=== PATIENT | female | born 1960 | race Hispanic/Latino ===

== ENCOUNTER 2020-06-29 01:14 | Emergency (ER) | payer OTHER, SELFPAY ==
[2020-06-29 01:18] VITALS: BP 160/96; PULSE 68; RESP 16; TEMP 36.4; O2SAT 100
[2020-06-29] MEDS: hydrALAZINE HCL 20 MG/ML VIAL 10 MG IM (01:54)
--- NOTE | 2020-06-29 02:00 | ED.HA ---
HPI - Headache General Chief Complaint: Headache Stated Complaint: headache Time Seen by Provider: 06/29/20 01:20 History of Present Illness HPI Narrative: She had a severe posterior headache throughout the day yesterday. It was throbbing and associated with nausea. She reports that she had a similar Headache years ago and at that time she had high blood pressure and was started on medication. She took ibuprofen pror to coming in and the headache and nausea have nearly resolved. She is now concerned because her BP was elevated during triage. No weakness, numbness, dizziness. Related Data Allergies Allergy/AdvReac Type Severity Reaction Status Date / Time No Known Allergies Allergy Unverified 06/29/20 02:40 Review of Systems Review of Systems: All systems reviewed & are unremarkable except as noted in HPI and below Constitutional: Constitutional: Denies fever(s) and Denies weakness Eyes: Eyes: Denies change in vision ENT: Denies sore throat Cardiovascular: Cardiovascular: Denies chest pain Respiratory: Respiratory: Denies dyspnea Gastrointestinal: Gastrointestinal: Denies abdominal pain, Reports nausea and Denies vomiting Genitourinary: Genitourinary: Denies dysuria Neurologic: Denies dizziness, Reports headache(s), Denies numbness and Denies weakness [facility] Past Medical History Medical History (Updated 06/29/20 @ 02:35 by Obdulio Recio MD) Diabetes mellitus Social History Social History (Updated 06/29/20 @ 02:09 by Obdulio Recio MD) Living arrangements: with family Exam Const: General: no acute distress and alert Orientation/consciousness: patient oriented x3 HENMT: Head: normal to inspection Eyes: Pupils: Equal, round and reactive pupils present Resp: Effort & Inspection: normal respiratory effort Auscultation: clear to auscultation bilaterally Cardio: Rate: regular rate Rhythm: regular rhythm GI: Inspection: non-distended GI Palp: Yes Soft to palpation and No Tenderness to palpation present (GI) Skin: General skin exam: normal color Neuro: General: patient oriented x3, moves all extremities and CN's II-XI intact bilaterally Speech: normal speech Extrem: General: normal to inspection Course Vital Signs Vital signs: Vital Signs Temperature 36.4 C L 06/29/20 01:18 Pulse Rate 68 06/29/20 01:18 Respiratory Rate 16 06/29/20 01:18 Blood Pressure 160/96 H 06/29/20 01:18 Pulse Oximetry 100 06/29/20 01:18 Temperature 36.4 C L 06/29/20 01:18 Pulse Rate 88 06/29/20 02:37 Respiratory Rate 15 06/29/20 02:37 Blood Pressure 153/60 H 06/29/20 02:37 Pulse Oximetry 97 06/29/20 02:37 Discharge Plan Discharge Clinical Impression: Headache Qualifiers: Headache type: unspecified Headache chronicity pattern: acute headache Intractability: not intractable Qualified Code(s): R51.9 - Headache, unspecified Hypertension Qualifiers: Hypertension type: unspecified Qualified Code(s): I10 - Essential (primary) hypertension Patient Disposition: Home, Self-Care Condition: Stable Instructions: Acute Headache (ED), Hypertension (ED) Additional Instructions: Follow-up with your primary care physician for a blood pressure recheck. Prescriptions: New amlodipine 5 mg tablet 5 mg PO DAILY Qty: 30 RF: 0 Follow-up/Referrals: UNKNOWN,DOCTOR [Primary Care Provider] -
[2020-06-29 02:37] VITALS: BP 153/60; PULSE 88; RESP 15; O2SAT 97
[2020-06-29] MEDS: amLODIPine BESYLATE 5 MG TABLET PO (02:37)
== END 2020-06-29 02:40 | disposition home or self-care (01) ==
PROVIDERS: Emergency Provider Emergency Medicine
DX: R51.9 Headache, unspecified (principal); I10 Essential (primary) hypertension; E11.9 Type 2 diabetes mellitus without complications
CPT/HCPCS: 96372; 99283; A9270; J0360

== ENCOUNTER 2020-07-05 20:47 | Emergency (ER) | payer OTHER, SELFPAY ==
--- NOTE | ~2020-07-05 | CT_ITS ---
EXAMINATION: CT brain wo con DATE: 07/05/2020 23:59 INDICATION: Headache TECHNIQUE: Computed tomography (CT) of the head was performed without intravenous contrast. The mA wa s adjusted according to patient size. Iterative reconstruction technique was employed. Exam dose: 60 5.33 mGy-cm total exam DLP. COMPARISON: None FINDINGS: No intracranial mass lesion or hemorrhage or cerebrovascular accident is evident. No midlin e shift or mass effect. Normal ventricular size. Bilateral carotid siphon internal carotid artery calcifications are noted. No subdural or epidural hematoma. No fracture or bone destruction of the cranial vault. There is extensive opacification of posterior left ethmoid air cells and complete opacification of th e left sphenoid sinus. Minimal soft tissue thickening of the left maxillary sinus. The included paranasal sinuses and mastoid air cells are otherwise unremarkable. IMPRESSION: Extensive opacification of posterior left ethmoid air cells and complete opacification o f left sphenoid sinus, minimal soft tissue thickening of left maxillary sinus Cerebral atherosclerosis No significant intracranial abnormality Reviewed, dictated and finalized at [facility]. Reviewed, dictated and finalized at [facility]. IMPRESSION: Extensive opacification of posterior left ethmoid air cells and co mplete opacification of left sphenoid sinus, minimal soft tissue thickening of left maxillary sinus Cerebral atherosclerosis No significant intracranial abnormality
[2020-07-05 21:05] VITALS: BP 146/74; PULSE 90; RESP 18; TEMP 36.2; O2SAT 100
--- NOTE | 2020-07-05 23:27 | ED.GENADULT ---
HPI - General Adult General Chief complaint: Headache Stated complaint: Headache,nausea, weakness Time Seen by Provider: 07/05/20 23:00 Source: patient and family (son is interpreting for patient) Mode of arrival: ambulatory Limitations: no limitations History of Present Illness HPI narrative: Patient was seen here last week with similar complaint of headache. Treatment at that time reduce the severity of her headache but did not resolve, and today he became quite painful she could hear rushing in her right ear. She says the pain radiates around to the back of her head and she has some numbness to the base of her skull. She is also complaining of chest pain that radiates to her left shoulder, that pain coincides with her pain in her head. She was treated for hypertension when she was here last, and her blood pressure today is normal. Onset (ago): hour(s) Location: head and chest Severity: severe Quality: aching Relieving factors: none Exacerbating factors: none Treatments prior to arrival: NSAID Related Data Home Medications Medication Instructions Recorded Confirmed metformin mg 07/05/20 07/05/20 gabapentin 07/06/20 Allergies Allergy/AdvReac Type Severity Reaction Status Date / Time No Known Allergies Allergy Verified 07/05/20 21:08 Review of Systems Review of Systems: All systems reviewed & are unremarkable except as noted in HPI and below PMFSH Past Medical History Medical History (Updated 07/06/20 @ 01:37 by Olesya Woodruff PA-C) Cervical disc disease Diabetes mellitus Social History Social History Gender identity (if verbalized by the patient): Female Exam Const: General: healthy appearing, no acute distress and alert HENMT: Head: normal to inspection Ears: TM's normal bilaterally Face and sinus: normal facial exam Mouth: Yes Normal oral and palatal mucosa present Eyes: Conjunctivae: conjunctivae normal Pupils: Equal, round and reactive pupils present Resp: Effort & Inspection: normal respiratory effort Auscultation: clear to auscultation bilaterally Cardio: Rate: tachycardic Rhythm: regular rhythm Back/Spine/Pelvis: Cervical Spine: cervical ROM normal Skin: General skin exam: normal color Neuro: General: moves all extremities Extrem: General: normal to inspection Psych: Mental Status: mental status grossly normal Course Course Emergency Course: Pts glucose is >300. She states she does take her Metformin at home, but she doesn't check her blood sugar. EKG shows NSR Repeat blood glucose is 218 and patients headache and chest pain has resolved. Pt has appointment with PMD at 0900. Vital Signs Vital signs: Vital Signs Temperature 36.2 C L 07/05/20 21:05 Pulse Rate 90 07/05/20 21:05 Respiratory Rate 18 07/05/20 21:05 Blood Pressure 146/74 H 07/05/20 21:05 Pulse Oximetry 100 07/05/20 21:05 Temperature 36.2 C L 07/05/20 21:05 Pulse Rate 89 07/06/20 00:50 Respiratory Rate 15 07/06/20 00:50 Blood Pressure 168/72 H 07/06/20 00:50 Pulse Oximetry 100 07/06/20 00:50 Medical Decision Making Vital Signs Vital Signs: Vital Signs Temperature 36.2 C L 07/05/20 21:05 Pulse Rate 90 07/05/20 21:05 Respiratory Rate 18 07/05/20 21:05 Blood Pressure 146/74 H 07/05/20 21:05 Pulse Oximetry 100 07/05/20 21:05 Temperature 36.2 C L 07/05/20 21:05 Pulse Rate 89 07/06/20 00:50 Respiratory Rate 15 07/06/20 00:50 Blood Pressure 168/72 H 07/06/20 00:50 Pulse Oximetry 100 07/06/20 00:50 Lab Data Lab results reviewed: Yes I reviewed the patient's lab results. Result diagrams: 07/06/20 00:13 07/06/20 00:13 Labs: Lab Results 07/06/20 07/06/20 07/06/20 Range/Units 00:13 00:13 00:13 WBC 8.0 (4.5-10.0) K/mm3 RBC 4.31 (4.2-5.4) M/mm3 Hgb 12.0 (12.0-15.0) g/dL Hct 36.7 L (37.0-47.0) % MCV 85.2 (80-100) fl [facility]
[2020-07-06] MEDS: KETOROLAC 30 MG/ML VIAL (*BKC) IV PUSH (00:10)
[2020-07-06 00:18] VITALS: BP 174/82; PULSE 88; RESP 15; O2SAT 100
[2020-07-06 00:20] LABS: Basophils Absolute Auto 0.1 K/mm3 (0.0-0.1); Basophils Percent Auto 0.9 % (0.2-1.2); Eosinophils Absolute Auto 0.3 K/mm3 (0-0.3); Eosinophils Percent Auto 4.2 % (0-4.4); Hematocrit 36.7 % (37.0-47.0); Immature Granulocyte Absolute 0.02 K/mm3 (0.00-0.031); Immature Granulocyte Percent A 0.2 % (0-0.5); Lymphocytes Absolute Auto 2.21 K/mm3 (0.9-3.2); Lymphocytes Percent Auto 27.6 % (18.3-44.2); Mean Corpuscular HGB Conc 32.7 g/dl (32-36); Mean Corpuscular Hemoglobin 27.8 pg (26-34); Mean Corpuscular Volume 85.2 fl (80-100); Mean Platelet Volume 10.2 fl (7.4-10.4); Monocytes Absolute Auto 0.5 K/mm3 (0.1-0.6); Monocytes Percent Auto 6.6 % (2.6-8.5); Neutrophils Absolute Auto 4.8 K/mm3 (1.3-6.7); Neutrophils Percent Auto 60.5 % (45.5-73.1); Platelet Count Result 340 k/mm3 (150-375); Red Blood Count 4.31 M/mm3 (4.2-5.4); Red Cell Distribution Width 12.7 % (11.5-14.5)
[2020-07-06 00:36] LABS: Alanine Aminotransferase 19 U/L (4-35); Albumin Level 4.6 g/dL (3.5-5.1); Alkaline Phosphatase 97 U/L (38-126); Anion Gap 10 mmol/L (8-16); Aspartate Amino Transferase 33 U/L (14-36); Bilirubin,Total 0.2 mg/dL (0.2-1.3); Blood Urea Nitrogen 18 mg/dL (7-17); Calcium 10.1 mg/dL (8.4-10.2); Carbon Dioxide 31 mmol/L (22-30); Chloride 98 mmol/L (98-107); Estimated CRCL calculation 54 ml/min; Estimated Glomerular Filt Rate > 60; Glucose 320 mg/dL (65-105); Potassium 4.1 mmol/L (3.4-5.0); Sodium 139 mmol/L (137-145)
[2020-07-06 00:48] LABS: Troponin I < 0.012 ng/mL (0.000-0.034)
[2020-07-06] MEDS: SODIUM CHLORIDE 0.9% IV 1,000 ML 999 ML IV CONT (00:48)
[2020-07-06 00:50] VITALS: BP 168/72; PULSE 89; RESP 15; O2SAT 100
--- NOTE | 2020-07-06 01:12 | ECG_ITS ---
Measurements Intervals [place] Rate: 93 P: 74 IA: 147 QRS: 68 QRSD: 87 T: 57 QT: 341 QTc: 424 Interpretive Statements SINUS RHYTHM BASELINE ARTIFACT- II, III, AVL, AVF, V4-V6 BORDERLINE ECG Electronically Signed On 07-06-2020 7:02:39 CDT by Eduardo Hernandez D.O.
[2020-07-06 01:54] LABS: Glucose Point of Care 218 (65-105)
== END 2020-07-06 02:23 | disposition home or self-care (01) ==
PROVIDERS: Physician Assistant; Emergency Provider Emergency Medicine
DX: E11.65 Type 2 diabetes mellitus with hyperglycemia (principal); R51.9 Headache, unspecified; J01.30 Acute sphenoidal sinusitis, unspecified; Z79.84 Long term (current) use of oral hypoglycemic drugs; M50.90 Cervical disc disorder, unspecified, unspecified cervical region
CPT/HCPCS: 36415; 70450; 80053; 84484; 85025; 93005; 96361; 96374; 99284; J1885; J7030

== ENCOUNTER 2020-12-02 11:55 | Emergency (ER) | payer OTHER, SELFPAY ==
[2020-12-02] VITALS (8 sets, daily range): BP systolic 134–176; BP diastolic 44–79; PULSE 88–111; RESP 13–19; TEMP 36.6–36.8; O2SAT 98–99
--- NOTE | ~2020-12-02 | CT_ITS ---
EXAMINATION: CT abdomen pelvis w con INDICATION: Nausea TECHNIQUE: Computed tomographic images of the abdomen and pelvis were obtained after the administrati on of 100 cc of Omnipaque 350 intravenous contrast. The dose-length product (DLP) was 312.06 mGy-cm. Automated exposure control and iterative reconstruction technique were employed. COMPARISON: None available FINDINGS: Minimal dependent atelectasis is present in the lung bases. The heart size is normal. The s pleen, pancreas, gallbladder, and adrenal glands are normal. The kidneys are unremarkable. No patholo gically enlarged abdominal or pelvic lymph nodes are identified. There is no free intraperitoneal gas or evidence of bowel obstruction. There is mild thickening of the bladder wall. IMPRESSION: 1. Mild bladder wall thickening which could reflect cystitis. Reviewed, dictated and finalized at [facility].
[2020-12-02] MEDS: SODIUM CHLORIDE 0.9% IV 1,000 ML 999 ML IV CONT (12:55)
[2020-12-02] MEDS: ONDANSETRON INJ 4 MG/2 ML VIAL IV PUSH (12:55)
[2020-12-02 13:06] LABS: Basophils Percent Auto 0.3 % (0.2-1.2); Eosinophils Percent Auto 0.6 % (0-4.4); Hematocrit 36.4 % (37.0-47.0); Hemoglobin 12.4 g/dL (12.0-15.0); Immature Granulocyte Absolute 0.01 K/mm3 (0.00-0.031); Immature Granulocyte Percent A 0.3 % (0-0.5); Lymphocytes Absolute Auto 0.91 K/mm3 (0.9-3.2); Lymphocytes Percent Auto 26.9 % (18.3-44.2); Mean Corpuscular HGB Conc 34.1 g/dl (32-36); Mean Corpuscular Hemoglobin 27.9 pg (26-34); Mean Platelet Volume 10.1 fl (7.4-10.4); Monocytes Absolute Auto 0.2 K/mm3 (0.1-0.6); Monocytes Percent Auto 7.1 % (2.6-8.5); Neutrophils Absolute Auto 2.2 K/mm3 (1.3-6.7); Neutrophils Percent Auto 64.8 % (45.5-73.1); Platelet Count Result 161 k/mm3 (150-375); Red Blood Count 4.44 M/mm3 (4.2-5.4); White Blood Count 3.4 K/mm3 (4.5-10.0)
[2020-12-02 13:12] LABS: Add Urine Microscopic? YES; Appearance Urine Cloudy (Clear); Bacteria Urine Trace /hpf; Bilirubin Urine Negative (Negative); Blood Urine Negative (Negative); Color Urine Yellow (Yellow); Glucose Urine UA Negative (Negative); Ketones Urine 2+ mg/dL (Negative); Leukocyte Esterase Ur Negative LEU/UL (Negative); Mucus Urine Rare /lpf; Nitrate Urine Negative (Negative); Protein Urine 3+ mg/dL (Negative); RBC Urine 0-2 /hpf (0-2); Specific Grav Ur 1.015 (1.001-1.035); Squamous Epithelial Cell Urine Many /hpf (Few); Urobilinogen Urine Negative mg/dL (<2.0)
--- NOTE | 2020-12-02 13:13 | ED.GENADULT ---
HPI - General Adult General Chief complaint: Nausea/Vomiting/Diarrhea Stated complaint: nausea, burning, decreased appetite. Time Seen by Provider: 12/02/20 12:31 Source: patient, family and RN notes reviewed Mode of arrival: ambulatory Limitations: language barrier History of Present Illness HPI narrative: Patient is 60 years old female does not speak Irish came to the emergency room because of nausea and feeling empty in the stomach for the last 4 days. Intermittent, worse with eating. Patient denies any fever, chills, vomiting, diarrhea, constipation, radiation of pain, chest pain, shortness of breath, headache, urinary symptoms. History of hypertension and diabetes. Patient does not smoke or drink or uses drugs. History of section. The above history was obtained through a flight line service attendant on iPad Related Data Home Medications Medication Instructions Recorded Confirmed metformin mg 07/05/20 07/05/20 gabapentin 07/06/20 glimepiride mg 12/02/20 hydrochlorothiazide 12/02/20 lisinopril 12/02/20 pravastatin 12/02/20 Allergies Allergy/AdvReac Type Severity Reaction Status Date / Time No Known Allergies Allergy Verified 12/02/20 12:28 Review of Systems Review of Systems: Narrative: CONSTITUTIONAL: Denies fever, chills, or sweats. EYES: Denies visual changes, redness, or discharge. ENT: Denies rhinorrhea, congestion, sore throat, or otalgia. CARDIOVASCULAR: Denies chest pain, palpitations, or edema. RESPIRATORY: Denies cough or dyspnea. GASTROINTESTINAL: Denies abdominal pain, nausea, vomiting, or diarrhea. GENITOURINARY: Denies dysuria or hematuria. SKIN: Denies rash or itching. MUSCULOSKELETAL: Denies back pain, joint pain, or myalgia. NEUROLOGIC: Denies headache, numbness, or weakness. PSYCHIATRIC: Denies anxiety or depression. PMFSH Past Medical History Medical History Cervical disc disease Diabetes mellitus Social History Social History Gender identity (if verbalized by the patient): Female Exam Narrative: Exam Narrative: General appearance: Well-developed, well-nourished Skin: Normal color Head: Normocephalic, nontraumatic Eyes: Clear conjunctiva ENT: Oropharynx normal, ears normal, nose normal Neck: Supple, nontender Chest and respiratory: Airway patent, no respiratory distress, no accessory muscle use Heart: Regular rate/rhythm Abdomen: Soft, nontender, no organomegaly, quiet bowel sounds Vascular: Normal peripheral pulses, normal capillary refill. Musculoskeletal: Normal range of motion, nontender back Neurologic: Alert and oriented ?3, FUELER is normal as tested, no gross motor deficit Course Course Emergency Course: Stable Vital Signs Vital signs: Vital Signs Temperature 36.8 C 12/02/20 12:20 Pulse Rate 93 12/02/20 12:20 Respiratory Rate 19 12/02/20 12:20 Blood Pressure 176/75 H 12/02/20 12:20 Pulse Oximetry 98 12/02/20 12:20 Temperature 36.6 C 12/02/20 12:52 Pulse Rate 97 12/02/20 12:52 Respiratory Rate 18 12/02/20 12:52 Blood Pressure 146/60 H 12/02/20 12:52 Pulse Oximetry 99 12/02/20 12:52 Medical Decision Making MDM Narrative Medical decision making narrative: Nausea and epigastric discomfort. Labs, UA, CT abdomen pelvis with IV contrast, IV fluid, IV Zofran ordered. Further plan to follow please look at my differential diagnosis below Differential Diagnosis Differential Diagnosis: Pancreatitis, gastroparesis, gastritis, electrolyte imbalance, malignancy Vital Signs Vital Signs: Vital Signs Temperature 36.8 C 12/02/20 12:20 Pulse Rate
[2020-12-02 13:17] LABS: Alanine Aminotransferase 15 U/L (4-35); Albumin Level 4.3 g/dL (3.5-5.1); Alkaline Phosphatase 76 U/L (38-126); Anion Gap 10 mmol/L (8-16); Aspartate Amino Transferase 37 U/L (14-36); Bilirubin,Total 0.4 mg/dL (0.2-1.3); Blood Urea Nitrogen 9 mg/dL (7-17); Carbon Dioxide 28 mmol/L (22-30); Chloride 98 mmol/L (98-107); Estimated CRCL calculation 63 ml/min; Estimated Glomerular Filt Rate > 60; Glucose 166 mg/dL (65-105); Lipase 150 U/L (23-300); Potassium 3.7 mmol/L (3.4-5.0); Sodium 136 mmol/L (137-145)
== END 2020-12-02 14:50 | disposition home or self-care (01) ==
PROVIDERS: Emergency Provider Emergency Medicine
DX: R10.13 Epigastric pain (principal); E11.9 Type 2 diabetes mellitus without complications; Z79.84 Long term (current) use of oral hypoglycemic drugs; R93.41 Abnormal radiologic findings on diagnostic imaging of renal pelvis, ureter, or bladder
CPT/HCPCS: 36415; 74177; 80053; 81001; 81025; 83690; 85025; 96361; 96374; 99284; J2405; J7030; Q9967

== ENCOUNTER 2020-12-03 13:20 | Emergency (ER) | payer OTHER, SELFPAY | END 2020-12-03 13:30 | disposition left against medical advice (07) | PROVIDERS: Emergency Provider Internal Medicine Hematology & Oncology | DX: Z53.21 Procedure and treatment not carried out due to patient leaving prior to being seen by health care provider (principal) | CPT/HCPCS: 99199 ==

== ENCOUNTER 2023-10-01 12:11 | Emergency (ER) | payer OTHER, SELFPAY ==
[2023-10-01 12:17] VITALS: BP 142/65; PULSE 84; RESP 20; TEMP 36.4; O2SAT 100
[2023-10-01 12:46] LABS: Basophils Percent Auto 0.4 % (0.2-1.2); Eosinophils Absolute Auto 0.1 K/mm3 (0-0.3); Eosinophils Percent Auto 0.8 % (0-4.4); Hematocrit 39.9 % (37.0-47.0); Hemoglobin 12.6 g/dL (12.0-15.0); Immature Granulocyte Absolute 0.01 K/mm3 (0.00-0.031); Immature Granulocyte Percent A 0.1 % (0-0.5); Lymphocytes Absolute Auto 2.44 K/mm3 (0.9-3.2); Lymphocytes Percent Auto 33.2 % (18.3-44.2); Mean Corpuscular HGB Conc 31.6 g/dl (32-36); Mean Corpuscular Hemoglobin 26.7 pg (26-34); Mean Corpuscular Volume 84.5 fl (80-100); Mean Platelet Volume 9.7 fl (7.4-10.4); Monocytes Absolute Auto 0.4 K/mm3 (0.1-0.6); Monocytes Percent Auto 5.3 % (2.6-8.5); Neutrophils Absolute Auto 4.4 K/mm3 (1.3-6.7); Neutrophils Percent Auto 60.2 % (45.5-73.1); Platelet Count Result 309 k/mm3 (150-375); Red Blood Count 4.72 M/mm3 (4.2-5.4); Red Cell Distribution Width 12.2 % (11.5-14.5); White Blood Count 7.4 K/mm3 (4.5-10.0)
[2023-10-01 13:01] LABS: Appearance Urine Cloudy (Clear); Bacteria Urine 4+ /hpf; Bilirubin Urine Negative (Negative); Color Urine Yellow (Yellow); Glucose Urine UA 3+ mg/dL (Negative); Ketones Urine Trace mg/dL (Negative); Leukocyte Esterase Ur Trace LEU/UL (Negative); Nitrate Urine Positive (Negative); Non Pathogenic Casts 0-2; Protein Urine 2+ mg/dL (Negative); RBC Urine 0-2 /hpf (0-2); Squamous Epithelial Cell Urine Moderate /hpf (Few); Urobilinogen Urine 0.2 mg/dL (<2.0); WBC Urine >100 /hpf
[2023-10-01 13:02] LABS: Specific Grav Ur 1.041 (1.001-1.035)
[2023-10-01 13:05] LABS: Alanine Aminotransferase 20 U/L (6-35); Albumin Level 4.5 g/dL (3.5-5.1); Alkaline Phosphatase 119 U/L (38-126); Anion Gap 13 mmol/L (8-16); Aspartate Amino Transferase 40 U/L (14-36); Bilirubin,Total 0.5 mg/dL (0.2-1.3); Blood Urea Nitrogen 21 mg/dL (7-17); Calcium 9.5 mg/dL (8.4-10.2); Carbon Dioxide 26 mmol/L (22-30); Chloride 98 mmol/L (98-107); Estimated CRCL calculation 65 ml/min; Estimated Glomerular Filt Rate > 60; Glucose 361 mg/dL (65-110); Lipase 210 U/L (23-300); Potassium 4.3 mmol/L (3.4-5.0); Sodium 137 mmol/L (137-145)
[2023-10-01 13:14] LABS: Add Urine Microscopic? YES
[2023-10-01 13:14] LABS: Influenza A QL RT-PCR Positive (Negative); Influenza B QL RT-PCR Negative (Negative); RSV RNA, RT-PCR Negative (Negative); SARS-CoV-2 RNA PCR Negative (Negative)
--- NOTE | 2023-10-01 13:15 | ED.NAVMDI ---
HPI - Nausea/Vomiting/Diarrhea General Chief complaint: Nausea/Vomiting/Diarrhea Stated complaint: nausea Time Seen by Provider: 10/01/23 12:30 Source: patient Mode of arrival: ambulatory Limitations: language barrier (patient's daughter is interpreting which she prefers, I offered str[employer] imagery intelligence and she declined) History of Present Illness HPI Narrative: This is a 63 year old female that presents to the emergency department for symptoms present over the last couple of days. Reports fever, fatigue, nausea, vomiting, myalgias, congestion, cough and headache. Denies dysuria or diarrhea. Related Data Home Medications Medication Instructions Recorded Confirmed metformin 1,000 mg tablet mg 07/05/20 07/05/20 gabapentin 400 mg capsule 07/06/20 glimepiride 4 mg tablet mg 12/02/20 hydrochlorothiazide 12.5 mg tablet 12/02/20 lisinopril 10 mg tablet 12/02/20 pravastatin 20 mg tablet 12/02/20 Allergies Allergy/AdvReac Type Severity Reaction Status Date / Time No Known Allergies Allergy Verified 10/01/23 12:30 Review of Systems Review of Systems: CONSTITUTIONAL: Reports fever ENT: Reports congestion RESPIRATORY: Reports cough. Denies dyspnea. GASTROINTESTINAL: Reports abdominal pain, nausea, vomiting. Denies diarrhea. GENITOURINARY: Denies dysuria All systems reviewed & are unremarkable except as noted in HPI and below PMFSH Past Medical History Medical History (Updated 10/01/23 @ 13:22 by Liyah Patel PA-C) Cervical disc disease Diabetes mellitus History of hypertension Social History Social History (Updated 10/01/23 @ 13:20 by Liyah Patel PA-C) Substance use: never Living arrangements: with family Gender identity (if verbalized by the patient): Female Exam Narrative: GENERAL: Well-appearing, well-nourished, and in no acute distress. HEAD: Normocephalic, atraumatic. EYES: EOMI. ENT: Nares clear, no rhinorrhea or epistaxis. Mucous membranes dry. Oropharynx without tonsillar hypertrophy exudate or other lesions. Bilateral TMs pearly farias non-bulging NECK: Supple. No adenopathy or masses. CHEST: Clear to auscultation. No respiratory distress. No wheezes rales or rhonchi HEART: Regular rate and rhythm. No murmur heard. Normal peripheral pulses. ABDOMEN: Soft, nontender, nondistended, normal active bowel sounds. EXTREMITIES: Normal range of motion. No edema. SKIN: Warm, dry, no rash. NEURO: No focal deficits. Alert and oriented x3. PSYCH: Normal mood and affect Course Course Emergency Course: patient and family updated on workup and agree with plan of care Vital Signs Vital signs: Vital Signs Temperature 97.6 F 10/01/23 12:17 Pulse Rate 84 10/01/23 12:17 Respiratory Rate 20 10/01/23 12:17 Blood Pressure 142/65 H 10/01/23 12:17 Pulse Oximetry 100 10/01/23 12:17 Temperature 97.6 F 10/01/23 12:17 Pulse Rate 84 10/01/23 12:17 Respiratory Rate 20 10/01/23 12:17 Blood Pressure 142/65 H 10/01/23 12:17 Pulse Oximetry 100 10/01/23 12:17 MDM - Nausea/Vomiting/Diarrhea MDM Narrative Medical decision making narrative: This is a 63-year-old female that presents to the emergency department for symptoms ongoing over the last couple of days. Reporting nausea, vomiting, congestion, headache aches, and myalgias. She is afebrile in the ED and nontoxic appearing. Her vitals are stable. Abdomen is nontender. Lungs are clear on exam. CBC and metabolic panel without concerning findings. Lipase is normal. Urine without evidence of infection. This will be sent for culture. Patient given 1st dose of antibiotics IV in the ED. patient is influenza A positive. Will be treated with Tamiflu. She was hydrated and given antiemetic with relief. She was updated on her workup and agrees with plan of care. She is to follow up with her primary provider. She was given warnings to return to the ER Differential Diagnosis Differential diagnosis: Likely g
[2023-10-01] MEDS: SODIUM CHLORIDE 0.9% IV 500 ML 999 ML IV CONT (13:17)
[2023-10-01] MEDS: ONDANSETRON INJ 4 MG/2 ML VIAL IV PUSH (13:20)
== END 2023-10-01 15:32 | disposition home or self-care (01) ==
PROVIDERS: Emergency Medicine; Emergency Provider Physician Assistant
DX: J10.1 Influenza due to other identified influenza virus with other respiratory manifestations (principal); N39.0 Urinary tract infection, site not specified; Z20.822 Contact with and (suspected) exposure to COVID-19; E11.9 Type 2 diabetes mellitus without complications; I10 Essential (primary) hypertension; Z79.84 Long term (current) use of oral hypoglycemic drugs
CPT/HCPCS: 36415; 80053; 81001; 83690; 85025; 87086; 87186; 87637; 96365; 96375; 99284; J0696; J2405; J7040

== ENCOUNTER 2024-02-13 08:27 | Emergency (ER) | payer OTHER, SELFPAY ==
[2024-02-13 08:28] VITALS: BP 157/65; PULSE 82; RESP 16; TEMP 36.9; O2SAT 100
[2024-02-13 08:58] LABS: Basophils Absolute Auto 0.1 K/mm3 (0.0-0.1); Basophils Percent Auto 0.6 % (0.2-1.2); Eosinophils Absolute Auto 0.2 K/mm3 (0-0.3); Eosinophils Percent Auto 1.8 % (0-4.4); Hematocrit 36.5 % (37.0-47.0); Hemoglobin 12.1 g/dL (12.0-15.0); Immature Granulocyte Absolute 0.03 K/mm3 (0.00-0.031); Immature Granulocyte Percent A 0.3 % (0-0.5); Lymphocytes Percent Auto 25.5 % (18.3-44.2); Mean Corpuscular HGB Conc 33.2 g/dl (32-36); Mean Corpuscular Hemoglobin 27.8 pg (26-34); Mean Corpuscular Volume 83.9 fl (80-100); Mean Platelet Volume 9.6 fl (7.4-10.4); Monocytes Absolute Auto 0.5 K/mm3 (0.1-0.6); Monocytes Percent Auto 5.1 % (2.6-8.5); Neutrophils Percent Auto 66.7 % (45.5-73.1); Platelet Count Result 313 k/mm3 (150-375); Red Blood Count 4.35 M/mm3 (4.2-5.4)
[2024-02-13 09:02] LABS: Appearance Urine Clear (Clear); Bacteria Urine Rare /hpf; Bilirubin Urine Negative (Negative); Blood Urine Non-Hemolyzed Trace (Negative); Color Urine Yellow (Yellow); Glucose Urine UA 3+ mg/dL (Negative); Ketones Urine Trace mg/dL (Negative); Leukocyte Esterase Ur Negative LEU/UL (Negative); Nitrate Urine Negative (Negative); Non Pathogenic Casts 0-2; Protein Urine 2+ mg/dL (Negative); RBC Urine 0-2 /hpf (0-2); Squamous Epithelial Cell Urine Occasional /hpf (Few); Urobilinogen Urine 0.2 mg/dL (<2.0); pH Urine 6.5 (5.0-9.0)
[2024-02-13 09:05] LABS: Add Urine Microscopic? YES; Specific Grav Ur 1.033 (1.001-1.035)
[2024-02-13 09:13] LABS: Alanine Aminotransferase 13 U/L (6-35); Albumin Level 4.4 g/dL (3.5-5.1); Alkaline Phosphatase 120 U/L (38-126); Anion Gap 8 mmol/L (4-12); Aspartate Amino Transferase 21 U/L (14-36); Bilirubin,Total 0.5 mg/dL (0.2-1.3); Blood Urea Nitrogen 18 mg/dL (7-17); Calcium 9.3 mg/dL (8.4-10.2); Carbon Dioxide 27 mmol/L (22-30); Chloride 99 mmol/L (98-107); Estimated Glomerular Filt Rate > 60; Glucose 307 mg/dL (65-110); Lipase 154 U/L (23-300); Sodium 134 mmol/L (137-145)
[2024-02-13] MEDS: SODIUM CHLORIDE 0.9% IV 2,000 ML 999 ML IV CONT (10:11)
[2024-02-13] MEDS: ONDANSETRON INJ 4 MG/2 ML VIAL IV PUSH (10:12)
[2024-02-13] MEDS: FAMOTIDINE 20 MG/2 ML VIAL IV PUSH (10:12)
--- NOTE | 2024-02-13 10:12 | ED.GENADULT ---
HPI - General Adult General Chief complaint: Nausea/Vomiting/Diarrhea Stated complaint: N/V,ABD PAIN X2D Time Seen by Provider: 02/13/24 09:05 History of Present Illness HPI narrative: Medical Accounts Receivable Specialist service used for all communication. This is a 63-year-old Eritrean-speaking female presenting for epigastric abdominal discomfort and nausea. Patient states for last 2 days she has had empty feeling in the epigastric area. This is associated with nausea but no vomiting. It is nonradiating, mild in intensity. She has had this multiple times in past has been seen in our ER for before. Patient denies fevers chills chest pain difficulty breathing. Her last bowel movement yesterday and was normal. No other complaints. Patient denies dysuria/ urgency/frequency. Related Data Home Medications Medication Instructions Recorded Confirmed metformin 1,000 mg tablet mg 07/05/20 07/05/20 gabapentin 400 mg capsule 07/06/20 glimepiride 4 mg tablet mg 12/02/20 hydrochlorothiazide 12.5 mg tablet 12/02/20 lisinopril 10 mg tablet 12/02/20 pravastatin 20 mg tablet 12/02/20 Allergies Allergy/AdvReac Type Severity Reaction Status Date / Time No Known Allergies Allergy Verified 02/13/24 08:29 [facility] Past Medical History Medical History Cervical disc disease Diabetes mellitus History of hypertension Social History Social History (Updated 10/01/23 @ 13:20 by Liyah Patel PA-C) Substance use: never Living arrangements: with family Gender identity (if verbalized by the patient): Female Exam Narrative: APPEARANCE: No apparent distress. A&O x3, well appearing Head: atraumatic. EYES: EOMI, NOSE: Atraumatic NECK: Trachea midline RESPIRATORY: No increased rate of breathing, CTAB CARDIOVASCULAR: RRR, ABDOMINAL: soft nontender no guarding or rebound, no CVA tenderness MUSCULOSKELETAl: No obvious deformities NEURO: Alert. Moving 4/4 extremities SKIN:: Warm, dry. Normal color PSYCHIATRIC: Normal affect Course Vital Signs Vital signs: Vital Signs Temperature 98.5 F 02/13/24 08:28 Pulse Rate 82 02/13/24 08:28 Respiratory Rate 16 02/13/24 08:28 Blood Pressure 157/65 H 02/13/24 08:28 Pulse Oximetry 100 02/13/24 08:28 Oxygen Delivery Room Air 02/13/24 08:28 Temperature 98.5 F 02/13/24 08:28 Pulse Rate 82 02/13/24 08:28 Respiratory Rate 16 02/13/24 08:28 Blood Pressure 157/65 H 02/13/24 08:28 Pulse Oximetry 100 02/13/24 08:28 Oxygen Delivery Room Air 02/13/24 08:28 Medical Decision Making MDM Narrative Medical decision making narrative: -Course: 63-year-old female presenting for epigastric discomfort and nausea. This is a chronic complaint for the patient. Laboratory studies were reassuring. Her abdominal exam is benign. Her vital signs are stable patient was given symptomatic treatment and was able to tolerate p.o.. She will be discharged prescriptions for Zofran and Pepcid. Primary care follow-up return precautions. -DDX includes but is not limited to: Nausea vomiting, medication side effect gastroenteritis, gastritis gallbladder disease, -Co-morbidities complicating care: hypertension, diabetes -External Chart Review: review of ER visit with identical presentation 11/2020 -Hx from independent Sources: Daughter bedside -Independent interpretation of studies: labs reviewed. glucose elevated w/o dka/hhs urine had 6-10 white blood cells per high-power field but negative nitrites and leuk esterase. Patient has no urinary symptoms or hold off on treatment. This can be followed by PCP -Interventions: 2 L normal saline, Zofran Pepcid -Shared decision making / Disposition:discharged -RX Zofran/pepcid Vital Signs Vital Signs: Vital Signs Temperature 98.5 F 02/13/24 08:28 Pulse Rate 82 02/13/24 08:28 Respiratory Rate 16 02/13/24 08:28 Blood Pressure 157/65 H 02/13/24 08:28 Pulse Oximetry
[2024-02-13 11:26] VITALS: BP 174/67; PULSE 88; RESP 16; O2SAT 99
== END 2024-02-13 11:33 | disposition home or self-care (01) ==
PROVIDERS: Emergency Provider Emergency Medicine
DX: K29.70 Gastritis, unspecified, without bleeding (principal); R11.0 Nausea; E11.9 Type 2 diabetes mellitus without complications; Z79.84 Long term (current) use of oral hypoglycemic drugs; I10 Essential (primary) hypertension
CPT/HCPCS: 36415; 80053; 81001; 83690; 85025; 87086; 96361; 96374; 96375; 99284; J2405; J7030

== ENCOUNTER 2024-02-13 22:38 | Emergency (ER) | payer OTHER, SELFPAY ==
--- NOTE | ~2024-02-13 | CT_ITS ---
EXAMINATION: CT abdomen pelvis w con DATE: 02/13/2024 23:37 INDICATION: Nausea and vomiting. TECHNIQUE: Computed tomography (CT) of the abdomen and pelvis was performed with 100 cc Omnipaque 350 intravenous contrast. The dose-length product was 245.33 mGy-cm. Automated exposure control and iter ative reconstruction technique were employed. COMPARISON: CT dated 12/02/2020. FINDINGS: Heart size normal. No significant pleural or pericardial effusion. The liver, spleen, pancr eas, adrenal glands and kidneys are unremarkable. Gallbladder is present. Nonobstructive bowel gas pa ttern. No significant vascular abnormality. No lymphadenopathy. No free air or free fluid. No abnorma l pelvic masses or fluid collections. There is bladder wall thickening. Correlate clinically for poss ible cystitis. IMPRESSION: 1. Bladder wall thickening. Correlate clinically for possible cystitis. Reviewed, dictated and finalized at [facility].
[2024-02-13 22:48] VITALS: BP 186/64; PULSE 76; RESP 16; TEMP 36.7; O2SAT 100
[2024-02-13 22:49] VITALS: BP 186/64; PULSE 76; RESP 13; O2SAT 100
[2024-02-13 23:01] LABS: Basophils Absolute Auto 0.1 K/mm3 (0.0-0.1); Basophils Percent Auto 0.5 % (0.2-1.2); Eosinophils Absolute Auto 0.1 K/mm3 (0-0.3); Eosinophils Percent Auto 1.1 % (0-4.4); Hematocrit 36.3 % (37.0-47.0); Immature Granulocyte Absolute 0.05 K/mm3 (0.00-0.031); Immature Granulocyte Percent A 0.5 % (0-0.5); Lymphocytes Absolute Auto 1.94 K/mm3 (0.9-3.2); Lymphocytes Percent Auto 20.5 % (18.3-44.2); Mean Corpuscular HGB Conc 33.1 g/dl (32-36); Mean Corpuscular Hemoglobin 27.6 pg (26-34); Mean Corpuscular Volume 83.4 fl (80-100); Mean Platelet Volume 9.2 fl (7.4-10.4); Monocytes Absolute Auto 0.4 K/mm3 (0.1-0.6); Monocytes Percent Auto 4.6 % (2.6-8.5); Neutrophils Absolute Auto 6.9 K/mm3 (1.3-6.7); Neutrophils Percent Auto 72.8 % (45.5-73.1); Platelet Count Result 306 k/mm3 (150-375); Red Blood Count 4.35 M/mm3 (4.2-5.4); Red Cell Distribution Width 11.9 % (11.5-14.5); White Blood Count 9.5 K/mm3 (4.5-10.0)
[2024-02-13 23:10] LABS: Alanine Aminotransferase 14 U/L (6-35); Albumin Level 4.4 g/dL (3.5-5.1); Alkaline Phosphatase 116 U/L (38-126); Anion Gap 9 mmol/L (4-12); Aspartate Amino Transferase 24 U/L (14-36); Bilirubin,Total 0.5 mg/dL (0.2-1.3); Blood Urea Nitrogen 13 mg/dL (7-17); Calcium 8.9 mg/dL (8.4-10.2); Carbon Dioxide 25 mmol/L (22-30); Chloride 99 mmol/L (98-107); Estimated Glomerular Filt Rate > 60; Glucose 301 mg/dL (65-110); Lipase 111 U/L (23-300); Potassium 4.1 mmol/L (3.4-5.0); Sodium 133 mmol/L (137-145)
[2024-02-13] MEDS: METOCLOPRAMIDE HCL INJ 10 MG/2 ML VIAL IV PUSH (23:18)
[2024-02-13] MEDS: MECLIZINE HCL 25 MG TABLET PO (23:18)
[2024-02-13] MEDS: PANTOPRAZOLE SODIUM IV 40 MG VIAL IV PUSH (23:18)
[2024-02-13 23:36] VITALS: PULSE 81; RESP 13; O2SAT 100
[2024-02-14 00:15] VITALS: PULSE 81; RESP 15
[2024-02-14 00:30] VITALS: PULSE 69; RESP 14
[2024-02-14 00:48] VITALS: PULSE 72; RESP 14; O2SAT 100
--- NOTE | 2024-02-14 02:31 | ED.NAVMDI ---
HPI - Nausea/Vomiting/Diarrhea General Chief complaint: Nausea/Vomiting/Diarrhea Stated complaint: N/V; seen here this morning for same sx Time Seen by Provider: 02/13/24 22:52 History of Present Illness HPI Narrative: patient was seen earlier for nausea vomiting felt to be likely gastritis presents back here for the same symptoms, she states that she tried taking the medicines prescribed and was not able to keep anything down. She also states that when she tries to get up she will get slightly dizzy and then get nauseous. Describes a sensation of the room spinning around her but only when she is sitting up or standing up. Related Data Home Medications Medication Instructions Recorded Confirmed metformin 1,000 mg tablet mg 07/05/20 07/05/20 gabapentin 400 mg capsule 07/06/20 glimepiride 4 mg tablet mg 12/02/20 hydrochlorothiazide 12.5 mg tablet 12/02/20 lisinopril 10 mg tablet 12/02/20 pravastatin 20 mg tablet 12/02/20 Allergies Allergy/AdvReac Type Severity Reaction Status Date / Time No Known Allergies Allergy Verified 02/13/24 08:29 Review of Systems Review of Systems: All systems reviewed & are unremarkable except as noted in HPI and below PMFSH Past Medical History Medical History Cervical disc disease Diabetes mellitus History of hypertension Social History Social History (Updated 10/01/23 @ 13:20 by Liyah Patel PA-C) Substance use: never Living arrangements: with family Gender identity (if verbalized by the patient): Female Exam Narrative: EXAMINATION OF ORGAN SYSTEMS/BODY AREAS: Constitutional: Vital signs per nursing GENERAL: appears slightly uncomfortable in the bed HEAD: Normal with no signs of head trauma. EYES: EOMI, conjunctiva normal, PERRL ENT: Hearing grossly intact LUNGS: Nonlabored breathing. HEART: [Regular rate and rhythm] ABD: [Soft], very minimal tenderness to palpation epigastric abdomen EXT: Normal range of motion SKIN: [No rashes or lesions.] NEURO: [Alert and oriented x 3. No gross focal sensory or strength deficits.] finger-nose intact. No facial droop. Clear speech. PSYCH: Normal affect Course Vital Signs Vital signs: Vital Signs Temperature 98.0 F 02/13/24 22:48 Pulse Rate 76 02/13/24 22:48 Respiratory Rate 16 02/13/24 22:48 Blood Pressure 186/64 H 02/13/24 22:48 Pulse Oximetry 100 02/13/24 22:48 Oxygen Delivery Room Air 02/13/24 22:48 Temperature 98.0 F 02/13/24 22:48 Pulse Rate 72 02/14/24 00:48 Respiratory Rate 14 02/14/24 00:48 Blood Pressure 186/64 H 02/13/24 22:49 Pulse Oximetry 100 02/14/24 00:48 Oxygen Delivery Room Air 02/13/24 22:48 MDM - Nausea/Vomiting/Diarrhea MDM Narrative Medical decision making narrative: She patient presenting with epigastric pain with nausea vomiting, and some vertigo worse with movement. She does admit that she drinks soda and eats spicy food every day. I suspect most likely gastritis versus peptic ulcer disease but since she did come back I did obtain a CT abdomen / pelvis which is thankfully normal. I did also give her meclizine for the vertigo, I have very low concern for posterior CVA given that the symptoms are positional and not persistent, and have been ongoing for multiple days. she is treated here for vertigo with meclizine, and nausea and vomiting and possible gastritis with Protonix, Reglan, and on re-evaluation states that she is feeling much better, she is no longer nauseous, she is also no longer dizzy, she feels comfortable going home at this time with return precautions and I did have long discussion regarding dietary changes. Lab Data 02/13/24 22:54 02/13/24 22:54 Labs: Lab Results 02/13/24 Range/Units 22:54 WBC 9.5 (4.5-10.0) K/mm3 RBC 4.35 (4.2-5.4) M/mm3 Hgb 12.0 (12.0-15.0) g/dL Hct 36.3 L (37.0-47.0) % MCV 83.4
== END 2024-02-14 01:26 | disposition home or self-care (01) ==
PROVIDERS: Emergency Provider Emergency Medicine
DX: R11.2 Nausea with vomiting, unspecified (principal); R42 Dizziness and giddiness; E11.9 Type 2 diabetes mellitus without complications; Z79.84 Long term (current) use of oral hypoglycemic drugs; I10 Essential (primary) hypertension
CPT/HCPCS: 36415; 74177; 80053; 81001; 83690; 85025; 87086; 96361; 96374; 96375; 99284; A9270; C9113; J2405; J2765; J7030; Q9967

== ENCOUNTER 2024-05-14 09:54 | Emergency (ER) | payer OTHER, SELFPAY ==
[2024-05-14 10:07] VITALS: BP 188/75; PULSE 72; RESP 20; TEMP 36.6; O2SAT 99
--- NOTE | 2024-05-14 10:10 | PC.NURSE ---
BS 116
[2024-05-14 10:12] LABS: Glucose Point of Care 116 mg/dl (65-105)
--- NOTE | 2024-05-14 10:48 | ED.EXTPRO ---
HPI - Extremity Problem General Chief complaint: Extremity Problem,Nontraumatic Stated complaint: leg pain Time Seen by Provider: 05/14/24 10:30 Source: patient and family Mode of arrival: ambulatory Limitations: language barrier (Bermudian speaker) History of Present Illness HPI Narrative: Interpretive services Iggy #[id number] used Patient presents with complaint of bilateral leg pain, numbness and tingling. She notes that it occurs intermittently and started at the bottoms of her feet but now her up to her knees. Not currently experiencing symptoms. Her primary care physician is Dr. Arce in [place]. She denies any fevers or shortness of breath. She has a diagnosis of diabetes mellitus for which she takes 1000 mg of metformin b.i.d. no other concerns or questions. Related Data Home Medications Medication Instructions Recorded Confirmed metformin 1,000 mg tablet mg 07/05/20 07/05/20 gabapentin 400 mg capsule 07/06/20 glimepiride 4 mg tablet mg 12/02/20 hydrochlorothiazide 12.5 mg tablet 12/02/20 lisinopril 10 mg tablet 12/02/20 pravastatin 20 mg tablet 12/02/20 Allergies Allergy/AdvReac Type Severity Reaction Status Date / Time No Known Allergies Allergy Verified 05/14/24 10:10 [facility] Past Medical History Medical History Cervical disc disease Diabetes mellitus History of hypertension Social History Social History Social History: Bermudian speaking Substance use: never Living arrangements: with family Gender identity (if verbalized by the patient): Female Exam Narrative: GENERAL: Well-appearing, well-nourished, and in no acute distress. HEAD: Normocephalic, atraumatic. EYES: Non injected, non icteric ENT: Nares clear, no rhinorrhea or epistaxis. NECK: Supple. CHEST: Speaking in full sentences. No respiratory distress. HEART: Regular rate and rhythm. . ABDOMEN: Soft, nondistended. EXTREMITIES: Normal range of motion. No lower extremity edema. Demonstrates bilateral knee flexion extension as well as dorsiflexion and plantar flexion of bilateral lower extremities. SKIN: Warm, dry, no rash. Extremities are warm and well perfused. NEURO: No focal deficits. Alert and oriented x3. Sensation intact to gross touch throughout bilateral calves and feet. PSYCH: Normal mood and affect. Course Vital Signs Vital signs: Vital Signs Temperature 97.8 F 05/14/24 10:07 Pulse Rate 72 05/14/24 10:07 Respiratory Rate 20 05/14/24 10:07 Blood Pressure 188/75 H 05/14/24 10:07 Pulse Oximetry 99 05/14/24 10:07 Oxygen Delivery Room Air 05/14/24 10:07 Temperature 97.8 F 05/14/24 10:07 Pulse Rate 87 05/14/24 13:09 Respiratory Rate 16 05/14/24 13:09 Blood Pressure 146/77 H 05/14/24 13:09 Pulse Oximetry 97 05/14/24 13:09 Oxygen Delivery Room Air 05/14/24 10:07 MDM - Extremity (Nontraumatic) MDM Narrative Medical decision making narrative: Patient presents with concern for intermittent on bilateral lower extremity pain and numbness and tingling. She has a history of diabetes mellitus for which she is on metformin 1000 mg b.i.d.. In the emergency department she is afebrile with vital signs notable for hypertension. Patient's symptoms do sound classically like peripheral neuropathy and this is especially likely given her diabetes however will assess for other etiologies. Legs are grossly symmetric and without edema thus low suspicion for DVT or lymphedema / heart failure. She has a normocytic anemia; the hemoglobin was previously normal although it does not represent a large delta from previous. She does have a very mild hypomagnesemia; will provide supplementation. Work up otherwise unremarkable. Has a mild anemia but would not suspect this degree to create symptoms such as these. Discharged home in stable condition and advised to follow up with [facility]
[2024-05-14 11:52] LABS: Basophils Percent Auto 0.5 % (0.2-1.2); Eosinophils Absolute Auto 0.4 K/mm3 (0-0.3); Eosinophils Percent Auto 5.6 % (0-4.4); Hematocrit 34.1 % (37.0-47.0); Hemoglobin 11.1 g/dL (12.0-15.0); Immature Granulocyte Absolute 0.02 K/mm3 (0.00-0.031); Immature Granulocyte Percent A 0.3 % (0-0.5); Lymphocytes Absolute Auto 2.53 K/mm3 (0.9-3.2); Lymphocytes Percent Auto 33.6 % (18.3-44.2); Mean Corpuscular HGB Conc 32.6 g/dl (32-36); Mean Corpuscular Hemoglobin 27.5 pg (26-34); Mean Corpuscular Volume 84.6 fl (80-100); Mean Platelet Volume 9.6 fl (7.4-10.4); Monocytes Absolute Auto 0.5 K/mm3 (0.1-0.6); Monocytes Percent Auto 6.3 % (2.6-8.5); Neutrophils Percent Auto 53.7 % (45.5-73.1); Platelet Count Result 311 k/mm3 (150-375); Red Blood Count 4.03 M/mm3 (4.2-5.4); Red Cell Distribution Width 12.2 % (11.5-14.5); White Blood Count 7.5 K/mm3 (4.5-10.0)
[2024-05-14 12:05] LABS: Alanine Aminotransferase 14 U/L (6-35); Albumin Level 4.3 g/dL (3.5-5.1); Alkaline Phosphatase 87 U/L (38-126); Anion Gap 10 mmol/L (4-12); Aspartate Amino Transferase 21 U/L (14-36); Bilirubin,Total 0.3 mg/dL (0.2-1.3); Blood Urea Nitrogen 15 mg/dL (7-17); Calcium 8.9 mg/dL (8.4-10.2); Carbon Dioxide 27 mmol/L (22-30); Chloride 101 mmol/L (98-107); Creatine Kinase 51 U/L (30-135); Estimated CRCL calculation 58 ml/min; Estimated Glomerular Filt Rate > 60; Glucose 99 mg/dL (65-110); Magnesium 1.5 mg/dL (1.6-2.3); Potassium 4.1 mmol/L (3.4-5.0); Sodium 138 mmol/L (137-145)
[2024-05-14] MEDS: MAGNESIUM OXIDE 400 MG TABLET PO (12:50)
[2024-05-14 13:09] VITALS: BP 146/77; PULSE 87; RESP 16; O2SAT 97
== END 2024-05-14 13:13 | disposition home or self-care (01) ==
PROVIDERS: Emergency Provider Student in an Organized Health Care Education/Training Program; PCP Internal Medicine Gastroenterology
DX: E11.42 Type 2 diabetes mellitus with diabetic polyneuropathy (principal); D64.9 Anemia, unspecified; E83.42 Hypomagnesemia; I10 Essential (primary) hypertension; Z79.84 Long term (current) use of oral hypoglycemic drugs
CPT/HCPCS: 36415; 80053; 82550; 82948; 83735; 85025; 99283; A9270

== ENCOUNTER 2024-06-17 12:22 | Emergency (ER) | payer OTHER, SELFPAY ==
--- NOTE | ~2024-06-17 | CT_ITS ---
Non-contrast Head CT History: Weakness COMPARISON: 07/05/2020 Technique: Axial non-contrast imaging of the brain was performed. Dose reduction technique was used on this scan by utilizing automated exposure control and iterative reconstruction technique. The dose -length product (DLP) was 605.33 mGy-cm. Findings: There is no evidence of intracranial hemorrhage, mass lesion, or acute infarct. Brain par enchyma appears normal. The ventricles and subarachnoid spaces are normal in size. The calvarium ap pears normal. There is opacification of the left sphenoid sinus and posterior left ethmoid air cells. The remaining visualized paranasal sinuses and mastoid air cells are clear. Impression: No intracranial abnormality seen. Left-sided sinus disease, as above. Reviewed, dictated and finalized at [facility]. Impression: No intracranial abnormality seen. Left-sided sinus disease, as above.
[2024-06-17 12:24] VITALS: BP 154/58; PULSE 81; RESP 20; TEMP 36.2; O2SAT 100
--- NOTE | 2024-06-17 12:36 | ECG_ITS ---
Test Date: 2024-06-17 12:58:10 Measurements Intervals [place] Rate: 75 P: 53 DC: 157 QRS: 69 QRSD: 88 T: 68 QT: 376 QTc: 422 Interpretive Statements SINUS RHYTHM No previous ECG available for comparison Electronically Signed On 06-18-2024 08:20:51 CDT by Matheus Mccarthy M.D.
--- NOTE | 2024-06-17 12:50 | ED_ITS ---
HPI - General Adult General Chief complaint: Weakness Stated complaint: nausea, weakness Time Seen by Provider: 06/17/24 12:28 History of Present Illness HPI narrative: 63-year-old Luxembourger speaking female presents with generalized weakness x3 months. Patient states the weakness started in her left leg that moved to her right leg and now has moved to her upper extremities. Patient states she has a history of diabetes. Patient saw her PCP and was diagnosed with neuropathy of left leg. Patient was started on nortriptyline for neuropathy. Patient denies chest pain, shortness of breath, abdominal pain Onset (ago): month(s) (3) Related Data Home Medications Medication Instructions Recorded Confirmed metformin 1,000 mg tablet mg 07/05/20 07/05/20 gabapentin 400 mg capsule 07/06/20 glimepiride 4 mg tablet mg 12/02/20 hydrochlorothiazide 12.5 mg tablet 12/02/20 lisinopril 10 mg tablet 12/02/20 pravastatin 20 mg tablet 12/02/20 Allergies Allergy/AdvReac Type Severity Reaction Status Date / Time No Known Allergies Allergy Verified 06/17/24 12:22 Review of Systems Review of Systems: A 10 system review of systems was completed on the patient and is negative except for what is stated in the HPI. Nursing and ancillary documentation was reviewed. [facility] Past Medical History Medical History Cervical disc disease Diabetes mellitus History of hypertension Social History Social History Social History: Luxembourger speaking Substance use: never Living arrangements: with family Gender identity (if verbalized by the patient): Female Exam Narrative: GENERAL: Well-appearing, well-nourished, and in no acute distress. HEAD: Normocephalic, atraumatic. EYES: PERRLA and EOMI. ENT: Nares clear, no rhinorrhea or epistaxis. Mucous membranes moist. NECK: Supple. CHEST: Clear to auscultation. No respiratory distress. HEART: Regular rate and rhythm. No murmur heard. Normal peripheral pulses. ABDOMEN: Soft, nontender, nondistended, normal active bowel sounds. EXTREMITIES: Normal range of motion. No edema. SKIN: Warm, dry, no rash. NEURO: No focal deficits. Alert and oriented x3. PSYCH: Normal mood and affect. Course Course Emergency Course: Patient feeling better after fluid. Patient given 1 g of magnesium. Will prescribe magnesium supplement. Will also treat UTI with antibiotics. Vital Signs Vital signs: Vital Signs Temperature 36.2 C L 06/17/24 12:24 Pulse Rate 81 06/17/24 12:24 Respiratory Rate 20 06/17/24 12:24 Blood Pressure 154/58 H 06/17/24 12:24 Pulse Oximetry 100 06/17/24 12:24 Oxygen Delivery Room Air 06/17/24 12:24 Temperature 36.2 C L 06/17/24 12:24 Pulse Rate 81 06/17/24 12:24 Respiratory Rate 20 06/17/24 12:24 Blood Pressure 154/58 H 06/17/24 12:24 Pulse Oximetry 100 06/17/24 12:24 Oxygen Delivery Room Air 06/17/24 12:24 Medical Decision Making MDM Narrative Medical decision making narrative: Patient requests a new PCP referral. Will discharge home with daughter Vital Signs Vital Signs: Vital Signs Temperature 36.2 C L 06/17/24 12:24 Pulse Rate 81 06/17/24 12:24 Respiratory Rate 20 06/17/24 12:24 Blood Pressure 154/58 H 06/17/24 12:24 Pulse Oximetry 100 06/17/24 12:24 Oxygen Delivery Room Air 06/17/24 12:24 Temperature 36.2 C L 06/17/24 12:24 Pulse Rate 81 06/17/24 12:24 Respiratory Rate 20 06/17/24 12:24 Blood Pressure 154/58 H 06/17/24 12:24 Pulse Oximetry 100 06/17/24 12:24 Oxygen Delivery Room Air 06/17/24 12:24 Lab Data 06/17/24 12:55 06/17/24 12:55 Labs: Lab Results 06/17/24 06/17/24 Range/Units 12:55 13:11 WBC 9.2 (4.5-10.0) K/mm3 RBC 3.85 L (4.2-5.4) M/mm3 Hgb 10.9 L (12.0-15.0) g/dL Hct 32.6 L (37.0-47.0) % MCV 84.7 (80-100) fl MCH 28.3 (26-34) pg MCHC 33.4 (32-36) g/dl RDW 12.6 (11.5-14.5) % Plt Count 312 (150-375) k/mm3 MPV 9.7 (7.4-10.4) fl Immature Gran % (Auto) 0.2 (0-0.5) % Neut % (Auto) 60.7 (45.5-73.1) % Lymph % (Auto) 27.8 (18.3-44.2) % [place] % (Auto) 5.2 (2.6-8.5) % Eos % (Auto) 5.4 H (0-4.4) % Baso % (Auto) 0.7 (0.2-1.2) % Lymph # (Auto) 2.56 (0.9-3.2) K/mm3 [place] # (Auto) 0.5 (0.1-0.6) K/mm3 Eos # (Auto) 0.5 H (0-0.3) K/mm3 Baso # (Auto) 0.1 (0.0-0.1) K/mm3 Abs Immat Gran (auto) 0.02 (0.00-0.031) K/mm3 Absolute Neuts (auto) 5.6 (1.3-6.7) K/mm3 Absolute Nucleated RBC 0.000 (0.0-0.012) K/mm3 Nucleated RBC % 0.0 (0.0-0.2) % Sodium 138 (137-145) mmol/L Potassium 4.9 (3.4-5.0) mmol/L Chloride 99 (98-107) mmol/L Carbon Dioxide 30 (22-30) mmol/L Anion Gap 9 (4-12) mmol/L BUN 22 H (7-17) mg/dL Creatinine 0.90 (0.7-1.0) mg/dL Estim Creat Clear Calc 48 ml/min Estimated GFR > 60 (59 - ) Glucose 165 H (65-110) mg/dL Calcium 9.7 (8.4-10.2) mg/dL Magnesium 1.4 L (1.6-2.3) mg/dL Total Bilirubin 0.2 (0.2-1.3) mg/dL AST 28 (14-36) U/L ALT 14 (6-35) U/L Alkaline Phosphatase 61 (38-126) U/L Troponin I < 0.012 (0.000-0.034) ng/mL Total Protein 8.0 (6.3-8.2) g/dL Albumin 4.3 (3.5-5.1) g/dL Urine Color Yellow (Yellow) Urine Appearance Clear (Clear) Urine pH 6.5 (5.0-9.0) Ur Specific [place] 1.021 (1.001-1.035) Urine Protein Negative (Negative) mg/dL Urine Glucose (UA) Negative (Negative) mg/dL Urine Ketones Trace H (Negative) mg/dL Ur Blood (Man) Negative (Negative) Urine Nitrate Negative (Negative) Urine Bilirubin Negative (Negative) Urine Urobilinogen 1.0 (<2.0) mg/dL Add Ur Microanalysis Reviewed Leukocyte Esterase Rfl 1+ H (Negative) MARKOS/UL Urine RBC 0-2 (0-2) /hpf Urine WBC 0-5 (0-3) /hpf Ur Squamous Epith Cells Few (Few) /hpf Urine Bacteria Rare /hpf Urine Casts 0-2 ECG Data EKG #1: Attestation: I personally reviewed and interpreted this ECG as follows: ECG completion date: 06/17/24 ECG completion time: 13:09 Prior ECG tracings: not available for review Interpretation: nsr EKG Interpretation: normal rate and sinus rhythm Discharge Plan Discharge Clinical Impression: Weakness, Hypomagnesemia, UTI (urinary tract infection) Patient Disposition: Home, Self-Care Condition: Improved Instructions: Antibiotic Form, Urinary Tract Infection in Women (ED), Hypomagnesemia (ED) Additional Instructions: Take medications as prescribed Increase clear fluid Return for fevers, abdominal pain, worsening symptoms Prescriptions: New magnesium oxide 400 mg magnesium capsule 400 mg PO DAILY Qty: 30 0RF cephalexin 500 mg capsule 500 mg PO Q12H Qty: 14 0RF No Action metformin 1,000 mg tablet gabapentin 400 mg capsule lisinopril 10 mg tablet glimepiride 4 mg tablet pravastatin 20 mg tablet hydrochlorothiazide 12.5 mg tablet pantoprazole [Protonix] 20 mg tablet,delayed release (DR/EC) 20 mg PO HS 28 Days Qty: 28 0RF famotidine [Pepcid] 20 mg tablet 20 mg PO BID 42 Days Qty: 84 0RF ondansetron 4 mg tablet,disintegrating 4 mg PO Q8H PRN (Reason: nausea and vomiting) Qty: 30 0RF amlodipine 5 mg tablet 5 mg PO DAILY Qty: 30 0RF cefdinir 300 mg capsule 300 mg PO Q12H 7 Days Qty: 14 0RF oseltamivir [Tamiflu] 75 mg capsule 75 mg PO Q12H 5 Days Qty: 10 0RF meclizine 25 mg tablet 25 mg PO TID PRN (Reason: dizziness) Qty: 14 0RF dicyclomine 20 mg tablet 20 mg PO TID Qty: 30 0RF ibuprofen 600 mg tablet 600 mg PO TID PRN (Reason: pain) Qty: 20 0RF acetaminophen 500 mg capsule 1,000 mg PO Q6H PRN (Reason: pain) Qty: 20 0RF Follow-up/Referrals: Shiva Conn MD [Physician] - (As needed) Claude,Isabella Ortiz MD [Primary Care Provider] - Time of Disposition: 14:17
[2024-06-17] MEDS: KETOROLAC 30 MG/ML VIAL (*BKC) IV PUSH (12:53)
[2024-06-17] MEDS: SODIUM CHLORIDE 0.9% IV 1,000 ML 999 ML IV CONT (12:53)
[2024-06-17 13:01] LABS: Basophils Absolute Auto 0.1 K/mm3 (0.0-0.1); Basophils Percent Auto 0.7 % (0.2-1.2); Eosinophils Absolute Auto 0.5 K/mm3 (0-0.3); Eosinophils Percent Auto 5.4 % (0-4.4); Hematocrit 32.6 % (37.0-47.0); Hemoglobin 10.9 g/dL (12.0-15.0); Immature Granulocyte Absolute 0.02 K/mm3 (0.00-0.031); Immature Granulocyte Percent A 0.2 % (0-0.5); Lymphocytes Absolute Auto 2.56 K/mm3 (0.9-3.2); Lymphocytes Percent Auto 27.8 % (18.3-44.2); Mean Corpuscular HGB Conc 33.4 g/dl (32-36); Mean Corpuscular Hemoglobin 28.3 pg (26-34); Mean Corpuscular Volume 84.7 fl (80-100); Mean Platelet Volume 9.7 fl (7.4-10.4); Monocytes Absolute Auto 0.5 K/mm3 (0.1-0.6); Monocytes Percent Auto 5.2 % (2.6-8.5); Neutrophils Absolute Auto 5.6 K/mm3 (1.3-6.7); Neutrophils Percent Auto 60.7 % (45.5-73.1); Platelet Count Result 312 k/mm3 (150-375); Red Blood Count 3.85 M/mm3 (4.2-5.4); Red Cell Distribution Width 12.6 % (11.5-14.5); White Blood Count 9.2 K/mm3 (4.5-10.0)
[2024-06-17 13:30] LABS: Alanine Aminotransferase 14 U/L (6-35); Albumin Level 4.3 g/dL (3.5-5.1); Alkaline Phosphatase 61 U/L (38-126); Anion Gap 9 mmol/L (4-12); Aspartate Amino Transferase 28 U/L (14-36); Bilirubin,Total 0.2 mg/dL (0.2-1.3); Blood Urea Nitrogen 22 mg/dL (7-17); Calcium 9.7 mg/dL (8.4-10.2); Carbon Dioxide 30 mmol/L (22-30); Chloride 99 mmol/L (98-107); Estimated CRCL calculation 48 ml/min; Estimated Glomerular Filt Rate > 60; Glucose 165 mg/dL (65-110); Magnesium 1.4 mg/dL (1.6-2.3); Potassium 4.9 mmol/L (3.4-5.0); Sodium 138 mmol/L (137-145)
[2024-06-17 13:35] LABS: Add Urine Microscopic? YES; Appearance Urine Clear (Clear); Bacteria Urine Rare /hpf; Bilirubin Urine Negative (Negative); Blood Urine Negative (Negative); Color Urine Yellow (Yellow); Glucose Urine UA Negative (Negative); Ketones Urine Trace mg/dL (Negative); Leukocyte Esterase Ur 1+ LEU/UL (Negative); Need Manual Microscopic Reviewed; Nitrate Urine Negative (Negative); Non Pathogenic Casts 0-2; Protein Urine Negative (Negative); RBC Urine 0-2 /hpf (0-2); Specific Grav Ur 1.021 (1.001-1.035); Squamous Epithelial Cell Urine Few /hpf (Few); WBC Urine 0-5 /hpf (0-3); pH Urine 6.5 (5.0-9.0)
[2024-06-17 13:41] LABS: Troponin I < 0.012 ng/mL (0.000-0.034)
[2024-06-17] MEDS: MAGNESIUM SULF 1 GM/D5W 100 ML 1 GM/100 ML BAG IVPB (13:55)
[2024-06-17 15:09] VITALS: BP 107/82; PULSE 88; RESP 18; TEMP 36.8; O2SAT 99
== END 2024-06-17 15:10 | disposition home or self-care (01) ==
PROVIDERS: Emergency Provider Nurse Practitioner Family; PCP Internal Medicine Gastroenterology
DX: N39.0 Urinary tract infection, site not specified (principal); E83.42 Hypomagnesemia; R53.1 Weakness; E11.9 Type 2 diabetes mellitus without complications; I10 Essential (primary) hypertension; Z79.84 Long term (current) use of oral hypoglycemic drugs; Z79.899 Other long term (current) drug therapy; J32.3 Chronic sphenoidal sinusitis; J32.2 Chronic ethmoidal sinusitis
CPT/HCPCS: 36415; 70450; 80053; 81001; 83735; 84484; 85025; 87077; 87086; 87186; 93005; 96361; 96365; 96375; 99284; J1885; J3475; J7030

== ENCOUNTER 2024-11-07 18:19 | Emergency (ER) | payer MEDICARE, MEDICAID, SELFPAY ==
--- NOTE | ~2024-11-07 | CT_ITS ---
History: Neck pain with whole-body paresthesia and weakness. PROCEDURE: CT cervical spine without intravenous contrast. COMPARISON: None TECHNIQUE: Multiple contiguous axial images of the cervical spine were performed without the administration of i ntravenous contrast. DLP: 210 mGy-cm FINDINGS: Straightening and slight reversal of the normal curvature of the cervical spine is identified, likely muscular in origin. No acute fractures are present. Degenerative disease is noted, with ankylosis at the level of C5 and C6. Diffuse disc space narrowing is identified at multiple levels within the cervical spine. The bilateral lung apices are unremarkable. No soft tissue abnormality is present. The airway is patent. Impression: Straightening and slight reversal of the normal curvature of the cervical spine, likely muscular in o rigin. Significant degenerative disease, as detailed above, without acute fracture. Reviewed, dictated and finalized at location A. ASSISTANT MANAGER Impression: Straightening and slight reversal of the normal curvature of the cervical spine , likely muscular in origin. Significant degenerative disease, as detailed above, without acute fracture.
--- NOTE | ~2024-11-07 | CT_ITS ---
EXAMINATION: CT brain wo con DATE: 11/07/2024 19:13 INDICATION: Headache. TECHNIQUE: Computed tomography (CT) of the head was performed without intravenous contrast. The mA wa s adjusted according to patient size. Iterative reconstruction technique was employed. The dose-lengt h product was 605.33 mGy-cm. COMPARISON: Head CT 06/17/2024 FINDINGS: There is no intracranial hemorrhage, acute infarction, or abnormal intracranial mass lesion . The ventricles are normal in size. There are likely changes of ocular lens replacement surgeries. T here is mucosal thickening in the paranasal sinuses. There is a trace right mastoid effusion. IMPRESSION: 1. Normal brain. Reviewed, dictated and finalized at location A. PACKER IMPRESSION: 1. Normal brain.
--- OUTSIDE RECORDS SUMMARY | 2024-11-07 18:21 | XMS_ITS | Referral Summary ---
Author Organization [facility] Address [address] [place] [address] Care Team Providers Care Asset Protection Officer Name Role Phone Unavailable Primary Care Provider Unavailabl e Source Comments [facility],non-owned Affiliates and Associated Physician Practices is amultiple site organization consisting of ambulatory clinics and hospital sitesin [place], [place], [place] and [place]. This disclosure is being madepursuant to the Care Everywhere program and may not contain all information available regarding this patient. Last updated 18.[facility] [employer] Allergies No known active allergies Medications * Be aware that medications may not be up to date on this document. Alwaysverify current medications with the patient. Medication Sig Dispensed Refills Start Date End Date Status amLODIPine (NORVASC) 5 MG tablet Take 5 mg by mouth once daily Active aspirin EC (ECOTRIN) 81 MG tablet Take 81 mg by mouth once daily Active glimepiride (AMARYL) 4 MG tablet Take 4 mg by mouth once daily Active hydroCHLOROthiazide (HYDRODIURIL) 12.5 MG Take 12.5 mg by mouth once daily Active lisinopril (PRINIVIL; ZESTRIL) 10 MG tablet Take 10 mg by mouth once daily Active metFORMIN (GLUCOPHAGE) 1000 MG tablet Take 1,000 mg by mouth 2 times daily with morning and evening meal 01/24/2021 Active pravastatin (PRAVACHOL) 10 MG tablet Take 10 mg by mouth once daily Active Social History Tobacco Use Types Packs/Day Years Used Date Smoking Tobacco: Never Smokeless Tobacco: Never Alcohol Use Standard Drinks/Week Comments Never 0 (1 standard drink = 0.6 oz pur e alcohol) Sex and Gender Information Value Date Recorded Sex Assigned at Not on file Gender Identity Not on file Sexual Orientation Not on file Last Filed Vital Signs Vital Sign Reading Time Taken Comments Blood Pressure 145/69 04/15/2021 3:32 PM CDT Pulse 80 04/15/2021 3:32 PM CDT Temperature - - Respiratory Rate - - Oxygen Saturation - - Inhaled Oxygen Concentration - - Weight - - Height - - Body Mass Index - - Plan of Treatment Not on file
--- OUTSIDE RECORDS SUMMARY | 2024-11-07 18:21 | XMS_ITS | Patient Health Summary ---
Author Organization [facility] Address [address] [place] [address] Care Team Providers Care [employer] Worker Name Role Phone Unavailable Primary Care Provider Unavailabl e Note from [facility],non-owned Affiliates and Associated Physician Practices is amultiple site organization consisting of ambulatory clinics and hospital sitesin [place], [place], [place] and [place]. This disclosure is being madepursuant to the Care Everywhere program and may not contain all information available regarding this patient. Last updated 18.[facility] [place] Allergies No known active allergies Medications * Be aware that medications may not be up to date on this document. Always verify current medications with the patient. * amLODIPine (NORVASC) 5 MG tablet Take 5 mg by mouth once daily * aspirin EC (ECOTRIN) 81 MG tablet Take 81 mg by mouth once daily * glimepiride (AMARYL) 4 MG tablet Take 4 mg by mouth once daily * hydroCHLOROthiazide (HYDRODIURIL) 12.5 MG Take 12.5 mg by mouth once daily * lisinopril (PRINIVIL; ZESTRIL) 10 MG tablet Take 10 mg by mouth once daily * metFORMIN (GLUCOPHAGE) 1000 MG tablet(Started 01/24/2021) Take 1,000 mg by mouth 2 times daily with morning and evening meal * pravastatin (PRAVACHOL) 10 MG tablet Take 10 mg by mouth once daily Social History Tobacco Use Types Packs/Day Years [...] - - Body Mass Index - - Procedures * WA EAR MICROSCOPY EXAMINATION(Performed 04/15/2021) Performed for Tinnitus of left ear Results * WA EAR MICROSCOPY EXAMINATION (04/15/2021 4:12 PM CDT) Narrative Claude Vale MD - 04/15/2021 4:12 PM CDT Claude Vale MD 04/15/2021 4:13 PM Both ear examined under microscope left monomer both middle ears healthy. Claude Vale MD PROCEDURE/MINOR SURG ICAL ORDERABLES
--- OUTSIDE RECORDS SUMMARY | 2024-11-07 18:21 | XMS_ITS | Clinical Summary ---
Author Organization [facility] Address [address] [place] [address] Care Team Providers Care Risk Assessment Analyst Name Role Phone Unavailable Primary Care Provider Unavailabl e Source Comments [facility],non-owned Affiliates and Associated Physician Practices is amultiple site organization consisting of ambulatory clinics and hospital sitesin [place], [place], [place] and [place]. This disclosure is being madepursuant to the Care Everywhere program and may not contain all information available regarding this patient. Last updated 18.[facility] [employer] Allergies No known active allergies Medications * [...] Mass Index - - Plan of Treatment Health Maintenance Due Date Last Done Comments BONE DENSITY TESTING 1959 COLOGUARD (AGES 45-75) - COL ON CA SCREENING 1959 COLON MONITORING 1959 COLONOSCOPY - COLON CA SCREENING 1959 CT COLONOGRAPHY - COLON CA SCREENING 1959 Colorectal Cancer Screening 1959 FIT - COLON CA SCREENING 1959 FLEX SIG - COLON CA SCREENING 1959 MAMMOGRAM 1959 PAP SMEAR 1959 HIV SCREENING 1974 HEPATITIS C SCREENING 08/16/1977 DTAP/TDAP/TD VACCINES (1 - Tdap) 1978 PNEUMOCOCCAL VACCINE 50+ (1 of 1 - PCV) 2009 ZOSTER VACCINE (1 of 2) 2009 COVID-19 VACCINE ( - 2023-2 5 season) 2024 INFLUENZA VACCINE (#1) 2024 DEPRESSION SCREENING 09/07/2024 Respiratory Syncytial Virus (RSV) Vaccine Pt: or over 60 yrs (1 - 1-dose 75+ series) 2034 HEPATITIS B VACCINE Aged Out No longe r eligible based on patient's age to complete this topic HIB VACCINE Aged Out No longer eligi ble based on patient's age to complete this topic HPV VACCINE Aged Out No longer eligi ble based on patient's age to complete this topic MENINGOCOCCAL (Group B) VACCINE Aged Out No longer eligible based on patient's age to complete this topic MENINGOCOCCAL VACCINE Aged Out No danny sylvia eligible based on patient's age to complete this topic
--- OUTSIDE RECORDS SUMMARY | 2024-11-07 18:22 | XMS_ITS | Data Portability ---
Author Organization [facility] - Susana BOYDia Jorge L Address [address] [place] [address] Care Team Providers Care Marketing Programs Specialist Name Role Phone ISABELLA DAWSON Primary Care Provider [phone] Assessment Encounter Date Assessment Date Assessment LastModified by Organization Details LastModified Time 06/06/2024 06/06/2024 I see in her records that she had a colonoscopy in 2017 and they recommended a five year follow up due to a poor prep. I will reach out to her primary care provider to see if this has been done. If not, we will look at getting this scheduled. [email or web address] Not available 06/06/2024 18:47:10 Plan of Treatment Reminders Order Date Submit Date Provider Last Modified By Organization Details Last Modified Time Details Appointments ANY 30 2024 09:30A Raza Dawson MD Not available Not available Not available Lab CMP, serum or plasma 2023 024 [facility], [address], [address], [place], [address], 09/07/2024 13:07:59 albumin/c reatinine , mass ratio, urine 2023 024 [facility] THOMPSON, Shea dariela [address], [address], [place], [address], 09/07/2024 13:07:58 CBC 2023 024 [facility], [address], [place], [address], 09/07/2024 13:08:00 HbA1c (hemoglob in A1c), blood 2023 024 [email or web address] In-Office Order, Internal Use Only DO Not Attach Compendium DO Not Attach Compendium, Do Not Delete/merge, [id number] 07/14/2024 10:09:41 bacterial vaginosis + vaginitis panel, vaginal 2023 024 [facility], [address] [place] [address], [address], [place], [address], 06/09/2024 09:16:09 cytology report, thin prep, smear or scraping, cervical or vaginal 2023 024 [facility], [address] [place] [address], [address], [place], [address], 06/10/2024 15:14:25 HbA1c (hemoglob in A1c), blood 2023 024 In-Office Order, Internal Use Only DO Not Attach Compendium DO Not Attach Compendium, Do Not Delete/merge, [id number] 03/24/2024 12:21:57 Referral nutrition ist/angeles crawford referral - Uncontrol led DM A1c 11.8 2023 024 [email or web address] [facility], [address], [place], [address], 07/30/2024 01:06:37 Procedures None recorded. Surgeries None recorded. Imaging MAMMO, screening , digital, bilateral 2023 [facility]), [address], [place], [address], 08/25/2024 18:53:16 Medication Orders losartan 25 mg tablet 2023 024 [facility] #72961, [address], [place], [place], [id number], 09/06/2024 16:58:10 gabapenti n 600 mg tablet 2023 024 [facility] #39897, [address], [place], [place], [id number], 07/13/2024 16:01:56 Jardiance 25 mg tablet 2023 024 [facility] #22644, [address], [place], [place], [id number], 07/13/2024 16:01:55 losartan 25 mg tablet 2023 [facility] #50044, [address], [place], [place], [id number], 05/17/2024 13:46:31 gabapenti n 300 mg capsule 2023 024 [facility]12233, [address], [place], [place], [id number], 05/17/2024 13:46:34 glimepiri de 4 mg tablet 2023 024 [facility] #01925, [address], [place], [place], [id number], 03/24/2024 12:22:06 metformin 1,000 mg tablet 2023 024 [facility] #62128, [address], [place], [place], [id number], 03/24/2024 12:22:03 aspirin 81 mg tablet,de layed release 2023 024 [facility] #53686, [address], [place], [place], [id number], 03/24/2024 12:22:04 multivita min tablet 2023 024 [facility] #93852, [address], [place], [place], [id number], 03/24/2024 12:22:06 gabapenti n 300 mg capsule 2023 024 [facility] #53702, [address], [place], [place], [id number], 03/24/2024 12:22:20 famotidin e 20 mg tablet 2023 024 [facility] #26917, [address], [place], [place], [id number], 03/24/2024 12:22:05 pravastat in 20 mg tablet 2023 024 [facility] #10544, [address], [place], [place], [id number], 03/24/2024 12:22:10 Patient TargetsNo targets recorded. Patient Instructions Encounter Date Encounter Id Patient Instructions Last Modified By Organization Details Last Modified Time 03/24/2024 [id number] estre imiento: instrucciones de cuidado - [constipation: care instructions] [email or web address] Not available 03/24/2024 12:21:52 aprenda acerca d e la diabetes tipo 2 - [learning about type 2 diabetes] [email or web address] Not available 03/24/2024 12:21:52 diabetes tipo 2: instrucciones de cuidado - [type 2 diabetes: care instructions] [email or web address] Not available 03/24/2024 12:21:52 enfermedad de reflujo gastroesof gico (GERD): instrucciones de cuidado - [gastroesophageal reflux disease (GERD): care instructions] [email or web address] Not available 03/24/2024 12:21:52 colesterol alto: instrucciones de cuidado - [high cholesterol: care instructions] [email or web address] Not available 03/24/2024 12:21:52 05/17/2024 [id number] aprenda acerca d e la diabetes tipo 2 - [learning about type 2 diabetes] [email or web address] Not available 05/17/2024 13:46:19 diabetes tipo 2: instrucciones de cuidado - [type 2 diabetes: care instructions] [email or web address] Not available 05/17/2024 13:46:19 anemia: instrucciones de cuidado - [anemia: care instructions] [email or web address] Not available 05/17/2024 13:46:19 07/13/2024 [id number] aprenda acerca d e la diabetes tipo 2 - [learning about type 2 diabetes] Not available 07/14/2024 10:09:41 diabetes tipo 2: instrucciones de cuidado - [type 2 diabetes: care instructions] [email or web address] Not available 07/14/2024 10:09:41 colesterol alto: instrucciones de cuidado - [high cholesterol: care instructions] [email or web address] Not available 07/13/2024 16:01:48 09/06/2024 [id number] aprenda acerca d e la diabetes tipo 2 - [learning about type 2 diabetes] [email or web address] Not available 09/06/2024 16:58:04 diabetes tipo 2: instrucciones de cuidado - [type 2 diabetes: care instructions] [email or web address] Not available 09/06/2024 16:58:04 enfermedad de reflujo gastroesof gico (GERD): instrucciones de cuidado - [gastroesophageal reflux disease (GERD): care instructions] [email or web address] Not available 09/06/2024 16:58:04 anemia: instrucciones de cuidado - [anemia: care instructions] [email or web address] Not available 09/06/2024 16:58:04 colesterol alto: instrucciones de cuidado - [high cholesterol: care instructions] [email or web address] Not available 09/06/2024 16:58:04 Reason for Referral Lead Operator/dietitian Refer ral for Type 2 diabetes mellitus Uncontrolled DM A1c 11.8 Referring Physician: Isabella Dawson, Internal Medicine, Encounter Date: 03/24/2024 Results Created Date Observation Date Name Description Value Unit Range Abnormal Flag Note LastModifiedBy Organization Detail LastModifiedTime 03/24/20 24 03/24/2024 HbA1c (hemo globi n A1c), blood HbA1c 11.8 Not Available In-Office Order Internal Use Only DO Not Attach Compendium DO Not Attach Compendium, Do Not Delete/merge, [id number] 03/24/2024 12:15:58 06/06/20 24 06/08/2024 NUSWA B BV EILEEN+C AND6+ CT/GC /T... atopobium vaginae HIGH - 2 score abnormal Not Available [facility] ([facility]) [address] [facility], [place], [address], 06/09/2024 09:16:08 06/06/20 24 06/08/2024 NUSWA B BV EILEEN+C AND6+ CT/GC /T... bvab 2 HIGH - 2 score abnormal Not Available [facility] ([facility]) [address] [facility], [place], [address], 06/09/2024 09:16:08 06/06/20 24 06/08/2024 NUSWA B BV EILEEN+C AND6+ CT/GC /T... megasphaera 1 HIGH - 2 score abnormal Calcu late total score by emi roman the 3 indiv idual bacte rial vagin osis (BV) ketty r score s toget her. Total score is inter prete d as follo ws: Total score 0-1: Indic ates the absen ce of BV. Total score 2: Indet ermin ate for BV. Addit ional clini gaby data shoul d be evalu ated to estab angelica a diagn osis. Total score 3-6: Indic ates the prese nce of BV. Not Available [facility] ([facility]) [address] [facility], [place], [address], 06/09/2024 09:16:08 06/06/20 24 06/08/2024 NUSWA B BV EILEEN+C AND6+ CT/GC /T... nancy albicans, EILEEN NEGATI VE negati ve Not Available [facility] ([facility]) [address] [place], [address], 06/09/2024 09:16:08 06/06/20 24 06/08/2024 NUSWA B BV EILEEN+C AND6+ CT/GC /T... nancy glabrata, EILEEN NEGATI VE negati ve Not Available [facility] ([facility]) [address] [place], [address], 06/09/2024 09:16:08 06/06/20 24 06/08/2024 NUSWA B BV EILEEN+C AND6+ CT/GC /T... hsv 1 EILEEN NEGATI VE negati ve Not Available [facility] ([facility]) [address] [place], [address], 06/09/2024 09:16:08 06/06/20 24 06/08/2024 NUSWA B BV EILEEN+C AND6+ CT/GC /T... hsv 2 EILEEN NEGATI VE negati ve Not Available [facility] ([facility]) [address] [place], [address], 06/09/2024 09:16:08 06/06/20 24 06/09/2024 NUSWA B BV EILEEN+C AND6+ CT/GC /T... C parapsilosis /tropicalis NEGATI VE negati ve This assay does not diffe renti ate C. tropi calis and C. parap reyes is. Not Available [facility] ([facility]) [address] [place], [address], 06/09/2024 09:16:08 06/06/20 24 06/09/2024 NUSWA B BV EILEEN+C AND6+ CT/GC /T... nancy lusitaniae, EILEEN NEGATI VE negati ve Not Available [facility] ([facility]) [address] [facility], [place], [address], 06/09/2024 09:16:08 06/06/20 24 06/09/2024 NUSWA B BV EILEEN+C AND6+ CT/GC /T... nancy krusei, EILEEN NEGATI VE negati ve Not Available [facility] ([facility]) [address] [facility], [place], [address], 06/09/2024 09:16:08 06/06/20 24 06/09/2024 NUSWA B BV EILEEN+C AND6+ CT/GC /T... trich vag by EILEEN NEGATI VE negati ve Not Available [facility] ([facility]) [address] [facility], [place], [address], 06/09/2024 09:16:08 06/06/20 24 06/09/2024 NUSWA B BV EILEEN+C AND6+ CT/GC /T... chlamydia trachomatis, EILEEN NEGATI VE negati ve Not Available [facility] ([facility]) [address] [facility], [place], [address], 06/09/2024 09:16:08 06/06/20 24 06/09/2024 NUSWA B BV EILEEN+C AND6+ CT/GC /T... neisseria gonorrhoeae, EILEEN NEGATI VE negati ve Not Available [facility] ([facility]) [address] [place], [address], 06/09/2024 09:16:08 06/06/20 24 06/08/2024 IGP,C TNGTV ,APT HPV,R FX16/ 18,45 HPV aptima NEGATI VE negati ve This nucle ic acid ampli ficat ion test detec ts fourt een high- risk HPV types (16,1 8,31, 33,35 ,39,4 5,51, 52,56 ,58,5 9,66, 68) witho ut diffe renti ation . Not Available [facility] ([facility]) [address] [place], [address], 06/10/2024 15:14:25 06/06/20 24 06/08/2024 IGP,C TNGTV ,APT HPV,R FX16/ 18,45 chlamydia, nuc. acid amp NEGATI VE negati ve Not Available [facility] ([facility]) [address] [place], [address], 06/10/2024 15:14:25 06/06/20 24 06/08/2024 IGP,C TNGTV ,APT HPV,R FX16/ 18,45 gonococcus, nuc. acid amp NEGATI VE negati ve Not Available [facility] ([facility]) [address] [place], [address], 06/10/2024 15:14:25 06/06/20 24 06/08/2024 IGP,C TNGTV ,APT HPV,R FX16/ 18,45 trich vag by EILEEN NEGATI VE negati ve Not Available [facility] ([facility]) [address] [place], [address], 06/10/2024 15:14:25 06/06/20 24 06/10/2024 IGP,C TNGTV ,APT HPV,R FX16/ 18,45 diagnosis: COMMEN T abnormal EPITH ELIAL CELL ABNOR MALIT Y. ATYPI GABY SQUAM OUS CELLS OF UNDET ERMIN ED SIGNI FICAN CE (ASC- US). Not Available [facility] ([facility]) [address] [place], [address], 06/10/2024 15:14:25 06/06/20 24 06/10/2024 IGP,C TNGTV ,APT HPV,R FX16/ 18,45 recommendati on: COMMEN T abnormal Sugge st follo w up as clini chloe appro priat e. Not Available [facility] ([facility]) [address] [place], [address], 06/10/2024 15:14:25 06/06/20 24 06/10/2024 IGP,C TNGTV ,APT HPV,R FX16/ 18,45 specimen adequacy: SHERRIE Florian Satis facto ry for evalu ation . Endoc ervic al and/o r squam ous metap lasti c cells (endo cervi gaby compo nent) are prese nt. Not Available [facility] ([facility]) [address] [facility], [place], [address], 06/10/2024 15:14:25 06/06/20 24 06/10/2024 IGP,C TNGTV ,APT HPV,R FX16/ 18,45 clinician provided ICD10: SHERRIE Florian Z12.4 Z11.3 Not Available [facility] ([facility]) [address] [place], [address], 06/10/2024 15:14:25 06/06/20 24 06/10/2024 IGP,C TNGTV ,APT HPV,R FX16/ 18,45 performed by: SHERRIE Nicole , Cytot echno logis t Not Available [facility] ([facility]) [address] [place], [address], 06/10/2024 15:14:25 06/06/20 24 06/10/2024 IGP,C TNGTV ,APT HPV,R FX16/ 18,45 electronical ly signed by: SHERRIE Peter MD, Patho logis t Not Available [facility] ([facility]) [address] [place], [address], 06/10/2024 15:14:25 06/06/20 24 06/10/2024 IGP,C TNGTV ,APT HPV,R FX16/ 18,45 . . Not Available [facility] ([facility]) [address] [place], [address], 06/10/2024 15:14:25 06/06/20 24 06/10/2024 IGP,C TNGTV ,APT HPV,R FX16/ 18,45 pathologist provided ICD10: SHERRIE Florian R87.6 10 Not Available [facility] ([facility]) [address] [facility], [place], [address], 06/10/2024 15:14:25 06/06/20 24 06/10/2024 IGP,C TNGTV ,APT HPV,R FX16/ 18,45 note: SHERRIE T The Pap smear is a scree shelly test desig reinaldo to aid in the detec tion of miguel ligna nt and malig nant condi tions of the uteri ne cervi x. It is not a diagn ostic proce dure and shoul d not be used as the sole means of detec ting cervi gaby cance r. Both false -posi tive and false -nega tive repor ts do occur . Not Available [facility] ([facility]) [address] [facility], [place], [address], 06/10/2024 15:14:25 06/06/20 24 06/10/2024 IGP,C TNGTV ,APT HPV,R FX16/ 18,45 test methodology: SHERRIE Florian This liqui d based ThinP rep(R ) pap test was scree reinaldo with the use of an image guide garrett casillas. Not Available [facility] ([facility]) [address] [facility], [place], [address], 06/10/2024 15:14:25 06/06/20 24 06/10/2024 IGP,C TNGTV ,APT HPV,R FX16/ 18,45 HPV genotype reflex SHERRIE Florian Crite shonda not met, HPV Genot ype not perfo rmed. Not Available [facility] ([facility]) [address] [facility], [place], [address], 06/10/2024 15:14:25 07/13/20 24 07/13/2024 HbA1c (hemo globi n A1c), blood HbA1c 8.0 Not Available In-Office Order Internal Use Only DO Not Attach Compendium DO Not Attach Compendium, Do Not Delete/merge, [id number] 07/13/2024 15:03:57 09/06/20 24 09/07/2024 ALBUM IN/CR EATIN INE RATIO ,URIN E creatinine, urine 74.6 mg/dL notest ab. Not Available [facility] ([facility]) [address] [place], [address], 09/07/2024 13:07:58 09/06/20 24 09/07/2024 ALBUM IN/CR EATIN INE RATIO ,URIN E albumin, urine 9.1 ug/mL notest ab. Not Available [facility] ([facility]) [address] [place], [address], 09/07/2024 13:07:58 09/06/20 24 09/07/2024 ALBUM IN/CR EATIN INE RATIO ,URIN E alb/creat ratio 12 mg/g_ creat 0-29 Veronica l: 0 - 29 Moder ately incre ased: 30 - 300 Sever bo incre ased: >300 Not Available [facility] ([facility]) [address] [place], [address], 09/07/2024 13:07:58 09/06/20 24 09/07/2024 COMP. METAB OLIC PANEL (14) glucose 123 mg/dL 70-99 above high normal Not Available [facility] ([facility]) [address] [place], [address], 09/07/2024 13:07:59 09/06/20 24 09/07/2024 COMP. METAB OLIC PANEL (14) BUN 25 mg/dL 8-27 Not Available [facility] ([facility]) [address] [place], [address], 09/07/2024 13:07:59 09/06/20 24 09/07/2024 COMP. METAB OLIC PANEL (14) creatinine 1.14 mg/dL 0.57-1 .00 above high normal Not Available [facility] ([facility]) [address] [facility], [place], [address], 09/07/2024 13:07:59 09/06/20 24 09/07/2024 COMP. METAB OLIC PANEL (14) eGFR 53 mL/mi n/1.7 3 >59 below low normal Not Available [facility] ([facility]) [address] [facility], [place], [address], 09/07/2024 13:07:59 09/06/20 24 09/07/2024 COMP. METAB OLIC PANEL (14) BUN/creatini ne ratio 22 12-28 Not Available [facility] ([facility]) [address] [facility], [place], [address], 09/07/2024 13:07:59 09/06/20 24 09/07/2024 COMP. METAB OLIC PANEL (14) sodium 138 mmol/ L 134-14 4 Not Available [facility] ([facility]) [address] [facility], [place], [address], 09/07/2024 13:07:59 09/06/20 24 09/07/2024 COMP. METAB OLIC PANEL (14) potassium 4.7 mmol/ L 3.5-5. 2 Not Available [facility] ([facility]) [address] [facility], [place], [address], 09/07/2024 13:07:59 09/06/20 24 09/07/2024 COMP. METAB OLIC PANEL (14) chloride 98 mmol/ L 96-106 Not Available [facility] ([facility]) [address] [facility], [place], [address], 09/07/2024 13:07:59 09/06/20 24 09/07/2024 COMP. METAB OLIC PANEL (14) carbon dioxide, total 25 mmol/ L 20-29 Not Available [facility] ([facility]) [address], [place], [address], 09/07/2024 13:07:59 09/06/20 24 09/07/2024 COMP. METAB OLIC PANEL (14) calcium 9.7 mg/dL 8.7-10 .3 Not Available [facility] ([facility]) [address] [place], [address], 09/07/2024 13:07:59 09/06/20 24 09/07/2024 COMP. METAB OLIC PANEL (14) protein, total 8.1 g/dL 6.0-8. 5 Not Available [facility] ([facility]) [address] [place], [address], 09/07/2024 13:07:59 09/06/20 24 09/07/2024 COMP. METAB OLIC PANEL (14) albumin 4.4 g/dL 3.9-4. 9 Not Available [facility] ([facility]) [address] [place], [address], 09/07/2024 13:07:59 09/06/20 24 09/07/2024 COMP. METAB OLIC PANEL (14) globulin, total 3.7 g/dL 1.5-4. 5 Not Available [facility] ([facility] [address] [facility] [place], [address], 09/07/2024 13:07:59 09/06/20 24 09/07/2024 COMP. METAB OLIC PANEL (14) bilirubin, total 0.3 mg/dL 0.0-1. 2 Not Available [facility] ([facility]) [address] [place], [address], 09/07/2024 13:07:59 09/06/20 24 09/07/2024 COMP. METAB OLIC PANEL (14) alkaline phosphatase 98 IU/L 44-121 Not Available [facility] ([facility]) [address] [facility], [place], [address], 09/07/2024 13:07:59 09/06/20 24 09/07/2024 COMP. METAB OLIC PANEL (14) AST (SGOT) 17 IU/L 0-40 Not Available [facility] ([facility]) [address] [facility], [place], [address], 09/07/2024 13:07:59 09/06/20 24 09/07/2024 COMP. METAB OLIC PANEL (14) ALT (SGPT) 13 IU/L 0-32 Not Available [facility] ([facility]) [address] [facility], [place], [address], 09/07/2024 13:07:59 09/06/20 24 09/07/2024 CBC, PLATE LET, NO DIFFE RENTI AL WBC 9.8 x10e3 /uL 3.4-10 .8 Not Available [facility] ([facility]) [address] [facility], [place], [address], 09/07/2024 13:08:00 09/06/20 24 09/07/2024 CBC, PLATE LET, NO DIFFE RENTI AL RBC 4.33 x10e6 /uL 3.77-5 .28 Not Available [facility] ([facility]) [address] [facility], [place], [address], 09/07/2024 13:08:00 09/06/20 24 09/07/2024 CBC, PLATE LET, NO DIFFE RENTI AL hemoglobin 11.7 g/dL 11.1-1 5.9 Not Available [facility] ([facility]) [address] [place], [address], 09/07/2024 13:08:00 09/06/20 24 09/07/2024 CBC, PLATE LET, NO DIFFE RENTI AL hematocrit 36.4 % 34.0-4 6.6 Not Available [facility] ([facility]) [address] [place], [address], 09/07/2024 13:08:00 09/06/20 24 09/07/2024 CBC, PLATE LET, NO DIFFE RENTI AL MCV 84 fL 79-97 Not Available [facility] ([facility]) [address] [facility], [place], [address], 09/07/2024 13:08:00 09/06/20 24 09/07/2024 CBC, PLATE LET, NO DIFFE RENTI AL MCH 27.0 pg 26.6-3 3.0 Not Available [facility] ([facility]) [address] [facility], [place], [address], 09/07/2024 13:08:00 09/06/20 24 09/07/2024 CBC, PLATE LET, NO DIFFE RENTI AL MCHC 32.1 g/dL 31.5-3 5.7 Not Available [facility] ([facility]) [address] [facility], [place], [address], 09/07/2024 13:08:00 09/06/20 24 09/07/2024 CBC, PLATE LET, NO DIFFE RENTI AL RDW 12.4 % 11.7-1 5.4 Not Available [facility] ([facility]) [address] [facility], [place], [address], 09/07/2024 13:08:00 09/06/20 24 09/07/2024 CBC, PLATE LET, NO DIFFE RENTI AL platelets 303 x10e3 /uL 150-45 0 Not Available [facility] ([facility]) [address] [facility], [place], [address], 09/07/2024 13:08:00 06/17/20 24 06/17/2024 CT, head + brain , w/o contr ast No observ ation record ed. [address], [place], [address], 06/18/2024 02:11:27 08/25/20 24 08/25/2024 MAMMO , scree shelly, digit al, bilat eral No observ ation record ed. [facility] [address] [place], [address], 10/07/2024 16:25:10 11/07/19 25 11/06/2024 imagi ng/di agnos tic resul t No observ ation record ed. [facility] [address] [place], [address], 11/06/2024 19:56:14 Result Notes None recorded. Problems Name Problem SNOMED Code Status Onset Date Resolution Date Notes Provider Name and Address Organization Details Recorded Time Noncomplia nce with treatment 9849590 Active 2017 Jerilyn Arredondo PA-C Attn: Accounting ,[address] [facility], [place], [address] , [facility] 8 10:20:40 Type 2 diabetes mellitus 19303094 Active 2020 Isabella Dawson MD Attn: Accounting ,[address] [facility], [place], [address] , [facility] 11:32:13 Hyperlipid emia 95285922 Active 2021 Isabella Dawson MD Attn: Accounting ,[address] [facility], [place], [address] , [facility] 2 14:22:39 Cough 40373104 Active 2021 Isabella Dawson MD Attn: Accounting ,[address] [facility], [place], [address] , [place] [facility] 2 14:24:26 Paresthesi a 87793100 Active 2021 Luz Dawson MD Attn: Accounting ,[address] [facility], [place], [address] , [facility] 2 12:31:10 Nausea 546903458 Active 2021 Isabella Dawson MD Attn: Accounting ,[address] [facility], [place], [address] , [place] [facility] 2 16:14:54 Anemia 826048634 Active 2023 Isabella Dawson MD Attn: Accounting ,[address] [facility], [place], [address] , [place] [facility] 4 13:41:37 Diabetes mellitus [id number] Completed 200311/16/2017 Jerilyn Arredondo PA-C Attn: Accounting ,[address] [facility], [place], [address] , [place] [facility] 8 10:20:32 Neck pain 79240415 Active 2001 Stefan Laird null, [place] [facility] 5 12:09:21 Hypertensi ve disorder 40298782 Active 2012 Stefan L[place] [facility] 6 11:59:06 Diabetic peripheral neuropathy 234067542 Active 2013 Stefan L[place], [place] [facility] 6 11:59:06 Uncontroll ed type 2 diabetes mellitus [id number] Completed 07/11/2021 Isabella Dawson MD Attn: Accounting ,[address] [facility], [place], [address] , [place] [facility] 1 11:32:29 Gastroesop hageal reflux disease 653641657 Active Stefan Laird null, [place] [facility] 6 16:41:54 Constipati on 30939405 Active Stefan Laird null, [place] - [facility] 6 12:35:27 Depressive disorder [id number] Completed 201609/10/2020 VONNIE ZHAO Attn: Accounting ,[address] [facility], [place], [address] , [place] [facility] 1 10:19:37 Screening for malignant neoplasm of colon Active 2016 Jerilyn Arredondo PA-C Attn: Accounting ,[address] [facility], [place], [address] , [place] - [facility] 7 13:55:20 Active or passive immunizati on Active 2016 Jerilyn Arredondo PA-C Attn: Accounting ,[address] [facility], [place], [address] , [facility] - [facility] 7 13:55:23 HPV - Human papillomav irus test positive Active 2016 Jerilyn Arredondo PA-C Attn: Accounting ,[address] [facility], [place], [address] , [place] - [facility] 7 13:14:27 Problem Notes None recorded. Procedures Surgical History Date Name Laterality Status Provider Name and Address Organization Details Recorded Time 06/07/20 18 extraction of cataract completed Ivelisse Steve MA [facility] 09/24/2018 17:09:30 11/26/19 18 Most Recent Mammogram completed Tammie Larose MA [facility] 06/06/2024 15:38:45 05/05/20 17 Date of Last Pap Smear completed Tammie Larose MA [facility] 06/06/2024 15:38:10 09/07/19 11 Other completed Briana Ball MA [facility] 08/20/2015 11:48:12 09/07/19 02 Back Surgery completed Stefan Laird [facility] 08/20/2015 12:03:59 09/07/19 01 Caesarean Section completed Briana Ball MA [facility] 08/20/2015 11:48:12 09/07/18 90 Appendectomy completed Briana Ball MA [facility] 08/20/2015 11:48:12 Imaging Results Imaging Date Name Status LastModified by Organiz ation Details LastModified Time 06/17/2024 CT, head + brain, w/o contrast completed [place] [address], [place], [address], 06/18/2024 02:11:27 08/25/2024 MAMMO, screening, digital, bilateral completed [facility] [address] [place], [address], 10/07/2024 16:25:10 11/06/2024 imaging/diagno stic result active [facility] [address] [place], [address], 11/06/2024 19:56:14 Procedure Notes None recorded. Medical Equipment None Reported. Allergies No known drug allergies Medications Name Sig Start Date Stop Date Status Note LastModified by Organization Details LastModified Time multivitami n tablet TAKE 1 TABLET BY MOUTH DAILY active Not Available Not Available No t Available losartan 50 mg tablet Take 1 tablet every day by oral route as directed for 30 days. 09/10 completed Not Available Not Available Not Available metformin 500 mg tablet take 2 tablet in morning and 1 with evening meal 12/27 completed Not Available Not Available Not Available BD Alcohol Swabs USE ONE PAD DAILY DIRECTED 05/05 completed Not Available Not Available Not Available gabapentin 600 mg tablet TAKE 1 TABLET BY MOUTH THREE TIMES DAILY DIRECTED active Not Available Not Available No t Available azithromyci n 250 mg tablet TAKE 2 TABLETS (500 MG) BY ORAL ROUTE ONCE DAILY FOR 1 DAY THEN 1 TABLET (250 MG) BY ORAL ROUTE ONCE DAILY FOR 4 DAYS 07/18 completed Not Available Not Available Not Available ofloxacin 0.3 % eye drops 07/18 completed Not Available Not Available Not Available prednisone 20 mg tablet 09/10 completed Not Available Not Available Not Available gabapentin 400 mg capsule TAKE 1 CAPSULE BY MOUTH THREE TIMES DAILY 06/12 completed Not Available Not Available Not Available promethazin e 6.25 mg-codeine 10 mg/5 mL syrup Take 5 mL every 6 hours by oral route. 05/05 completed Not Available Not Available Not Available penicillin V potassium 500 mg tablet Take 1 tablet every 8 hours by oral route after meals for 10 days. 07/18 completed Not Available Not Available Not Available metronidazo le 500 mg tablet TAKE 1 TABLET BY MOUTH TWICE DAILY active Not Available Not Available No t Available amlodipine 5 mg tablet TAKE 1 TABLET BY MOUTH EVERY DAY DIRECTED 05/05 completed Not Available Not Available Not Available peg-electro lyte solution 420 gram oral solution 11/16 completed Not Available Not Available Not Available aspirin 81 mg tablet,oniel yed release TAKE 1 TABLET BY MOUTH EVERY DAY WITH MEAL active Not Available Not Available No t Available amitriptyli ne 50 mg tablet TAKE 1 TABLET BY MOUTH EVERY DAY AT BEDTIME active Not Available Not Available No t Available acetaminoph en 500 mg tablet TAKE 2 TABLETS BY MOUTH EVERY 6 HOURS NEEDED FOR PAIN. active Not Available Not Available No t Available pantoprazol e 20 mg tablet,oniel yed release TAKE 1 TABLET BY MOUTH DAILY BEFORE A MEAL 05/05 completed Not Available Not Available Not Available ketorolac 0.5 % eye drops INSTILL 1 DROP INTO BOTH EYES 1-2 TIMES OER DAY NEEDED active Not Available Not Available No t Available amoxicillin 875 mg tablet TAKE 1 TABLET BY MOUTH TWICE DAILY 05/01 completed Not Available Not Available Not Available famotidine 20 mg tablet TAKE 1 TABLET BY MOUTH TWICE DAILY active Not Available Not Available No t Available prednisolon e acetate 1 % eye drops,suspe nsion 07/18 completed Not Available Not Available Not Available pravastatin 10 mg tablet TK 1 T PO QPM AFTER DINNER 06/12 completed Not Available Not Available Not Available dicyclomine 20 mg tablet TAKE 1 TABLET BY MOUTH THREE TIMES DAILY 03/24 completed Not Available Not Available Not Available meclizine 25 mg tablet TAKE 1 TABLET BY MOUTH THREE TIMES DAILY NEEDED FOR DIZZINESS 03/24 completed Not Available Not Available Not Available cephalexin 500 mg capsule TAKE 1 CAPSULE BY MOUTH EVERY 12 HOURS active Not Available Not Available No t Available oseltamivir 75 mg capsule TAKE 1 CAPSULE BY MOUTH EVERY 12 HOURS FOR 5 DAYS 03/24 completed Not Available Not Available Not Available metformin 1,000 mg tablet TAKE 1 TABLET BY MOUTH TWICE DAILY WITH MEALS active Not Available Not Available No t Available nystatin 100,000 unit/gram topical cream APPLY EXTERNALL Y TO THE AFFECTED AREA TWICE DAILY 07/18 completed Not Available Not Available Not Available ranitidine 150 mg tablet TAKE 1 TABLET BY MOUTH TWICE DAILY 07/18 completed Not Available Not Available Not Available lisinopril 10 mg tablet TAKE 1 TABLET BY MOUTH EVERY MORNING 05/05 completed Not Available Not Available Not Available glimepiride 4 mg tablet TAKE 1 TABLET BY MOUTH TWICE DAILY BEFORE MEALS active Not Available Not Available No t Available promethazin e 25 mg tablet 11/16 completed Not Available Not Available Not Available losartan 25 mg tablet Take 1 tablet every day by oral route. active Not Available Not Available No t Available docusate sodium 100 mg capsule TAKE 2 CAPSULES BY MOUTH EVERY DAY active Not Available Not Available No t Available gabapentin 300 mg capsule TAKE 1 CAPSULE BY MOUTH THREE TIMES DAILY active Not Available Not Available No t Available omeprazole 20 mg capsule,del ayed release Take 1 capsule every day by oral route before meals for 30 days. 07/01 completed Not Available Not Available Not Available pravastatin 20 mg tablet TAKE 1 TABLET BY MOUTH DAILY AFTER DINNER active Not Available Not Available No t Available ibuprofen 600 mg tablet TAKE 1 TABLET BY MOUTH THREE TIMES DAILY NEEDED FOR PAIN active Not Available Not Available No t Available methylpredn isolone 4 mg tablets in a dose pack FOLLOW PACKAGE DIRECTION S 10/11 completed Not Available Not Available Not Available ondansetron 4 mg disintegrat ing tablet DISSOLVE 1 TABLET ON THE TONGUE EVERY 8 HOURS NEEDED FOR NAUSEA OR VOMITING 03/24 completed Not Available Not Available Not Available cefdinir 300 mg capsule TAKE 1 CAPSULE BY MOUTH EVERY 12 HOURS FOR 1 WEEK 03/24 completed Not Available Not Available Not Available fluticasone propionate 50 mcg/actuati on nasal spray,suspe nsion SHAKE LIQUID AND USE 1 SPRAY IN EACH NOSTRIL EVERY DAY DIRECTED 05/05 completed Not Available Not Available Not Available metformin ER 500 mg tablet,exte nded release 24 hr TAKE 2 TABLETS BY MOUTH TWICE DAILY 01/07 completed Not Available Not Available Not Available lisinopril 2.5 mg tablet TAKE 1 TABLET BY MOUTH EVERY MORNING active Not Available Not Available No t Available ciprofloxac in 0.3 %-dexametha sone 0.1 % ear drops,suspe nsion 09/10 completed Not Available Not Available Not Available OneTouch Ultra2 Meter kit 01/29 completed Not Available Not Available Not Available mometasone 0.1 % topical solution GABRIELLE 2 GTS EXT AA BID 09/10 completed Not Available Not Available Not Available metformin ER 500 mg 24 hr tablet,exte nded release (gastric retention) take 2 tablets by mouth twice a day 01/07 completed Not Available Not Available Not Available Januvia 100 mg tablet Take 1 tablet every day by oral route. 03/24 completed Not Available Not Available Not Available hydrochloro thiazide 12.5 mg tablet TAKE 1 TABLET BY MOUTH EVERY DAY 05/05 completed Not Available Not Available Not Available metformin ER 1,000 mg 24 hr tablet,exte nded release (gastric reten.) Take 1 tablet twice a day by oral route with meals. 01/07 completed Not Available Not Available Not Available azelastine 205.5 mcg (0.15 %) nasal spray USE 2 SPRAYS IN EACH NOSTRIL TWICE DAILY 05/05 completed Not Available Not Available Not Available Micro Thin Lancets 33 gauge 11/16 completed Not Available Not Available Not Available Jardiance 25 mg tablet TAKE 1 TABLET BY MOUTH EVERY DAY active Not Available Not Available No t Available True Metrix Glucose Test Strip 08/26 completed Not Available Not Available Not Available OneTouch Ultra Blue Test Strip 07/01 completed Not Available Not Available Not Available OneTouch Ultra2 Meter 07/01 completed Not Available Not Available Not Available OneTouch Delica Plus Lancet 30 gauge 07/01 completed Not Available Not Available Not Available Vitals Date Recorded Body height Body mass index (BMI) Body weight Heart rate Oxygen saturation Oxygen saturation in Arterial blood by Pulse oximetry Body temperature Systolic blood pressure Diastolic blood pressure Provider Name and Address Organization Details Last Updated DateTime 4 167.64 cm 23.4 kg/m2 16733.8 9 g 78 /min 98 % 98 % 98.3 [degF] 144 mm[Hg] 77 mm[Hg] Kaylee Hargrove [place] - [facility] 4 11:39:24 Date Recorded Body height Body mass index (BMI) Body weight Oxygen saturation Oxygen saturation in Arterial blood by Pulse oximetry Heart rate Systolic blood pressure Diastolic blood pressure Provider Name and Address Organization Details Last Updated DateTime 4 167.64 cm 23.8 kg/m2 84905.5 9 g 98 % 98 % 72 /min 182 mm[Hg] 82 mm[Hg] Vanessa Perry MA [place] - [facility] 4 13:04:01 Date Recorded Body height Body mass index (BMI) Body weight Oxygen saturation Oxygen saturation in Arterial blood by Pulse oximetry Heart rate Systolic blood pressure Diastolic blood pressure Provider Name and Address Organization Details Last Updated DateTime 4 167.64 cm 23.9 kg/m2 70671.6 7 g 98 % 98 % 72 /min 122 mm[Hg] 80 mm[Hg] Tammie Larose MA [facility] 4 15:40:24 Date Recorded Body height Body mass index (BMI) Body weight Heart rate Respiratory rate Body temperature Oxygen saturation Oxygen saturation in Arterial blood by Pulse oximetry Systolic blood pressure Diastolic blood pressure Provider Name and Address Organization Details Last Updated DateTime 4 167.64 cm 23.7 kg/m2 79461.2 2 g 74 /min 14 /min 97.9 [degF] 98 % 98 % 118 mm[Hg] 66 mm[Hg] GOLDIE Newman [facility] 4 15:08:30 Date Recorded Body height Body mass index (BMI) Body weight Heart rate Oxygen saturation Oxygen saturation in Arterial blood by Pulse oximetry Systolic blood pressure Diastolic blood pressure Provider Name and Address Organization Details Last Updated DateTime 4 167.64 cm 23.7 kg/m2 86585.2 2 g 77 /min 98 % 98 % 148 mm[Hg] 76 mm[Hg] Vanessa Perry MA [facility] 4 16:21:55 Social History Question Answer Notes LastModified by Organizat ion Details LastModified Time Tobacco Smoking Status Never Smoker Briana Ball MA [facility], [facility] 08/20/2015 11:48:46 What Is Your Level Of Alcohol Consumption? None [email or web address] Information not available 08/20/2015 What Is Your Level Of Caffeine Consumption? Occasional [email or web address] Information not available 08/20/2015 Do You Or Have You Ever Used E-cigarettes Or Vape? Never Used Electronic Cigarettes Information not available 09/10/2020 Live Alone Or With Others? With Others [email or web address] Information not available 08/20/2015 What Was The Date Of Your Most Recent Tobacco Screening? 09/06/2024 Information not available 09/06/2024 How Many Children Do You Have? 9+ Information not available 08/20/2015 Seat Belts Used Routinely Yes Information not available 08/20/2015 Smoke Alarm In Home Yes [email or web address] Information not available 08/20/2015 Do You Or Have You Ever Used Smokeless Tobacco? Never Used Smokeless Tobacco Information not available 09/10/2020 How Much Tobacco Do You Smoke? No Information not available 09/10/2020 Has Tobacco Cessation Counseling Been Provided? Yes [email or web address] Information not available 03/24/2024 On What Date Was Tobacco Cessation Counseling Provided? 09/06/2024 Information not available 09/06/2024 Do You Or Have You Ever Used Any Other Forms Of Tobacco Or Nicotine? No [email or web address] Information not available 04/14/2023 Sex: Female Functional Status Question Answer Note LastModified by Organization D etails LastModified Time Are you able to care for yourself? Yes [email or web address] Information n ot available 08/20/2015 Mental Status None recorded. Family History Relationship Description Onset Age of this Age Resolved Age Notes LastModified by Organization Details LastModified Time Brother Diabetes mellitus [email or web address] Not available 08/20 11:48:12 Medical History Condition Response Coronary Artery Disease N Other N High Blood Pressure Y Atrial Fibrillation N Thyroid Problems N Kidney or Bladder Problems N GI Problems N Depression Y COPD N Blood Clots N Skin Problems N Anemia N Heart Attack ([place]) N Diabetes N Anxiety Disorder N Muscle, Joint, or Bone Problems N Seizures/Epilepsy N Acid Reflux (GERD) N Cancer N Stroke N Asthma N Allergies N High Cholesterol N Hepatitis N Liver Disease N Headaches N Osteoporosis N Heart Failure N Gynecological History Statement/Question Response If Post Menopausal, Age at Menopause 52 Abnormal Pap N Date of Last Pap Smear 05/05/2017 Current Control Method Menopause Most Recent Mammogram 11/25/2017 Age at First Child 16 Obstetrics History GPAL:G 10 P 0 0 0 10 Type Value Living 10 Total 10 Immunizations Vaccine Type Date Status Note Provider Nam e and Address Organization Details Recorded Time Tdap 7 completed Not Available [facility] 09/24/2019 02:44:55 pneumococcal polysaccharide PPV23 5 completed Not Available [facility] 09/24/2019 02:29:46 Influenza, split virus, quadrivalent, PF 5 completed Not Available [facility] 09/24/2019 02:32:08 Past Encounters Encounter ID Performer Location Encounter Start Date Encounter Closed Date Diagnosis/Indication Diagnosis SNOMED-CT Code Diagnosis ICD10 Code Diagnosis Note [id number] Stefan Gutierrez ([facility]) [address] [place] [address] 08/20/2015 11:31:04 08/20/2015 13:28:19 Adult health examination 135434897 Z00.01 reports colonoscop y 3 years ago, pap and mammogram 2 years ago-all done in [place]. No bone density scan, eye exam or podiatry visits done. We will order labs from [facility]. She will schedule for WWE and pap smear Diabetic p eripheral neuropathy 344592099 E11.40 Hypertensive disorder 38 602233 I10 Uncontroll ed type 2 diabetes mellitus 887859278 E11.65 [id number] Stefan Gutierrez ([facility]) [address] [place] [address] 09/27/2015 15:45:22 09/27/2015 17:38:32 Hypertensive disorder 24010728 I10 Uncontroll ed type 2 diabetes mellitus 520329360 E11.65 Diabetic p eripheral neuropathy 330258759 E11.40 Gastroesop hageal reflux disease 567425867 K21.9 [id number] Stefan Gutierrez ([facility]) [address] [place] [address] 12/28/2015 11:50:24 12/28/2015 12:45:38 Uncontrolled type 2 diabetes mellitus 313621296 E11.65 Hypertensive disorder 38 940527 I10 Diabetic p eripheral neuropathy 407488616 E11.40 Constipation 48175858 K5 9.00 [id number] [facility] [address] [place] [address] 04/18/2016 11:09:17 04/18/2016 12:06:53 Hypertensive disorder 33387237 I10 plan is to re-issue health maintenanc e orders and obtain labs on return when establishe d with new PCP. Patient is advised to monitor and record BS levels, get mammogram/ colonoscop y/eye exam as recommende d. Uncontroll ed type 2 diabetes mellitus 096763264 E11.65 Diabetic p eripheral neuropathy 496302834 E11.40 will increase gabapentin to 400 mg tid. [id number] TATIANA Forman (Adult Med) [address] [place] [address] 01/07/2017 11:00:09 01/08/2017 11:06:12 Diabetes mellitus 08976090 E11.9 WIll restart all medication s and check labs and patient to f/u in 1-2 weeks for lab f/uCheck BS BID - once fastingWil l readdress at next visit Screening for disorder 145533144 Z13.9 Hypertensive disorder 38 809404 I10 118/68 - will restart lisinopril 10mg Uncontroll ed type 2 diabetes mellitus 825461249 E11.65 Diabetic p eripheral neuropathy 453134346 E11.40 Screening for malignant neoplasm of colon 281286779 Z12.11 Gastroesop hageal reflux disease 409835564 K21.9 Active or passive immunization 505448790 Z23 Depressive disorder 3548 9007 F32.9 Will readdress at next visit - visit today spent on DM [id number] TATIANA Forman (Adult Med) [address] [place] [address] 04/08/2017 10:58:50 04/09/2017 11:30:54 Uncontrolled type 2 diabetes mellitus 509824761 E11.65 Will recheck a1c at this time - last a1c: 8.1 prior to restarting all medication Will refer to opthalmolo marcial at this timeAdvise d that she will have refills at her pharmacy for 4 monthsChec k FBS at home daily and log numbers - goal is ~100-120 Hypertensive disorder 38 395471 I10 134/68 - c/w lisinopril 10mg for kidney protection Diabetic p eripheral neuropathy 249183623 E11.40 Gastroesop hageal reflux disease 117111443 K21.9 Screening for malignant neoplasm of colon 068411867 Z12.11 [id number] TATIANA Forman (Adult Med) [address] [place] [phone] 05/05/2017 09:23:41 05/05/2017 17:49:28 Gynecologic examination 11689520 Z01.419 Screening for malignant neoplasm of breast 086890726 Z12.31 [id number] TATIANA Forman (Adult Med) [address] [place] [address] 11/16/2017 09:29:27 11/16/2017 10:39:16 Uncontrolled type 2 diabetes mellitus 681450211 E11.65 Will recheck a1c at this time - last a1c: 8.0 and no has only been taking metformin 1000mg BID because she has been out of [facility] d/t lack of f/uWill again refer to opthalmolo gy at this time Will refill medication based on labs tomorrow Discussed with patient that if we do not get her sugars under control and she keeps missing appointmen ts and not getting refills, she is on the fast track to insulin - patient v/u and states that [place] the [place] the [place]abl [place] future and will not miss any further appointmen ts Screening for malignant neoplasm of breast 443898785 Z12.31 Hypertensive disorder 38 784583 I10 126/72 - NAD, WNL - c/w lisinopril 10mg for kidney protection Discussed DASH diet Advised 30 minutes of exercise minimum dailyAdvis ed tobacco, alcohol, caffeine all increase BPAdvised goal for BP is <140/90 Noncomplia nce with treatment 6180588 Z91.19 Discussed with patient that DM can cause eye, heart, kidney, neurologic al damage, and possibly lead to stroke, extremity amputation , and Discussed that it is imperative that she make it to f/u appointmen ts and decide if she is going to be in [place] or the because if she is going to spend the majority of her time in [place], it may be of benefit to her to establish with someone down in [place] [id number] TATIANA Forman (Adult Med) [address] [place] [address] 11/23/2017 09:31:39 11/23/2017 10:13:09 Uncontrolled type 2 diabetes mellitus 248011628 E11.65 a1c: 6.2 - c/w metformin 1000mg BID and glimepirid e 4mg BIDHas an appointmen t for ophthalmol ogy 12/2017 Encouraged to keep up the good workCheck BS QD with a goal of 90-110 fastingCon tact office if BS is <80 or >300 Hypertensive disorder 38 613326 I10 110/68 - NAD, WNL - c/w lisinopril 10mg for kidney protection Discussed DASH diet Advised 30 minutes of exercise minimum dailyAdvis ed tobacco, alcohol, caffeine all increase BPAdvised goal for BP is <140/90 [id number] TATIANA Forman (Adult Med) [address] [place] [address] 08/26/2018 11:29:09 08/27/2018 09:23:22 Uncontrolled type 2 diabetes mellitus 495609226 E11.65 a1c: 7.2 - will restart all meds at this time: metformin 1000mg BID and glimepirid e 4mg BID Check BS QD with a goal of 90-110 fasting Contact office if BS is <80 or >300 Noncomplia nce with treatment 0138390 Z91.19 Discussed with patient that DM can cause eye, heart, kidney, neurologic al damage, and possibly lead to stroke, extremity amputation , and Discussed that it is imperative that she make it to f/u appointmen ts and and not go w/o any of her meds Gastroesop hageal reflux disease 528422093 K21.9 Advised to stay away from spicy and greasy foodsAdvis ed to stay away from fatty foodsDo not eat within 2 hours of going to bedStay sitting up after mealsNo smoking [id number] MD Melonie Lynch (Adult Med) [address] [place] [address] 09/24/2018 15:57:20 09/28/2018 12:20:30 Type 2 diabetes mellitus 07128295 E11.40 Dyslipidem ia due to type 2 diabetes mellitus 9194123473 02 E78.5 Essential hypertension 88622997 I10 Cataract 899335651 H26.9 Retinopath y due to diabetes mellitus 7575390 E11.319 Infection of tooth 89171 8007 K04.7 [id number] MD Melonie Lynch (Adult Med) [address] [place] [address] 07/13/2019 09:36:06 07/14/2019 09:37:08 Uncontrolled type 2 diabetes mellitus 704361644 E11.65 Diabetic diet, exercise and keep the weight down. Diabetic p eripheral neuropathy 118884610 E11.40 stable. Hypertensive disorder 38 843560 I10 Kenn salt diet, well controlled . Gastroesop hageal reflux disease 512501272 K21.9 Stable. Dyslipidem ia due to type 2 diabetes mellitus 9217521077 02 E78.5 Low saturated diet. Tinea corporis 76118920 B35.4 Patient informed to try cream first she agreed. Screening mammography 24 302874 Z12.31 [id number] MD Melonie Lynch (Adult Med) [address] [place] [phone] 05/04/2020 15:40:13 05/07/2020 21:42:07 Diabetic peripheral neuropathy 679667891 E11.40 stable. Gastroesop hageal reflux disease 575068306 K21.9 Stable. Hypertensive disorder 38 684619 I10 Kenn salt diet, well controlled . Uncontroll ed type 2 diabetes mellitus 954810348 E11.65 Diabetic diet, exercise and keep the weight down. Dyslipidem ia due to type 2 diabetes mellitus 6487947709 02 E78.5 Low saturated diet. [id number] MD Melonie Lynch (Adult Med) [address] [place] [address] 07/06/2020 09:46:00 07/09/2020 09:52:08 Essential hypertension 59166387 I10 discussed with patient and her daughter, will add second medication to controll BP , and BL monitor at home, advised her to be on low salt diet, avoid NSAID such as ibuprofen, naproxen , aleve , or OTC decongesta nts, they understood and agreed. Seasonal a llergic rhinitis 790246042 J30.2 Wants nasal spray. [id number] DORCAS Munoz (Adult Med) [address] [place] [address] 07/13/2020 08:57:33 07/16/2020 09:15:56 Pain of ear 941785590 H92.09 She agreed for the orders as below. [id number] MD Melonie Lynch (Adult Med) [address] [place] [phone] 07/18/2020 09:56:55 07/18/2020 11:07:39 Diabetic peripheral neuropathy 522506961 E11.40 stable. On gabapentin . Gastroesop hageal reflux disease 412443733 K21.9 Stable. On omeprazole . Hypertensive disorder 38 956066 I10 Kenn salt diet, well controlled . On amlodipine , and lisinopril . Uncontroll ed type 2 diabetes mellitus 852673240 E11.65 Diabetic diet, exercise and keep the weight down. On metformin, aspirin. glimepirid e [id number] VONNIE ZHAO [facility] [address] [place] [address] 09/10/2020 08:48:31 09/11/2020 07:55:32 Diabetic peripheral neuropathy [id number] E11.40 stable. On gabapentin . Gastroesop hageal reflux disease 223470304 K21.9 Stable. On omeprazole . Hypertensive disorder 38 689730 I10 On amlodipine and lisinopril . She states she takes these PRN per her last PCP. Advised to check BP regularly with a goal of <140/90, if BP consistent ly >140/90, advised to contact clinic Discussed DASH diet Advised weight loss and diet is best way to control BP Advised 30 minutes of exercise minimum daily Advised tobacco, alcohol, caffeine all increase BP Advised goal for BP is <140/90 Uncontroll ed type 2 diabetes mellitus [id number] E11.65 Patient states glucose ahs been in low 100's. Complaint with medication s. Last labs taken 2017. - f/u for labs- check sugars daily; goal fasting <130 and 1-2 hours after meal <180. call office if sugars falling under 70. - discussed diet: avoid sugars, pasta, tortillas, bread, rice, potatoes - Excercise 30 min 5x week - diabetic eye exam - foot exam at next visit Pain of ear 573491402 H9 2.09 patient will continue following up with ENT [id number] Enedina Arce MA [facility] [address] [place] [address] 09/11/2020 09:52:07 09/12/2020 10:45:41 [id number] Raeann Maravilla MD [facility] (Adult Med) [address] [place] [phone] 10/18/2020 08:39:35 10/22/2020 10:42:33 Tooth disorder 032186362 K08.9 May try [facility], She wants to try aspirin at local pharmacy.. [id number] MD Melonie Lynch (Adult Med) [address] [place] [phone] 0 05/01/2021 09:47:28 05/02/2021 11:50:22 Uncontrolled type 2 diabetes mellitus 228530256 E11.65 Diabetic diet, exercise and keep the weight down. On metformin, aspirin. glimepirid e Peripheral neuropathy due to type 2 diabetes mellitus 0577575134 107 E11.42 Microfilam ent touch test on both bottom of feet, showed diminished sensation, but has good pulses of DP. Acid reflux 892719130 K2 1.9 On pantoprazo le. Dyslipidem ia due to type 2 diabetes mellitus 9055106864 02 E78.5 Low saturated diet. on pravastati n. Hypertensive disorder 38 706397 I10 Low salt diet, well controlled . On amlodipine , and lisinopril . Will continue to monitor blood pressure. Hearing disorder 2464282 05 H91.93 Left message to [facility] , , also gave patient the same number to contact. [id number] MD Melonie Lynch (Adult Med) [address] [place] [phone] 0 06/12/2021 11:09:47 06/20/2021 18:57:53 Diabetic peripheral neuropathy 538867582 E11.40 stable. On gabapentin . Hypertensive disorder 38 971379 I10 Low salt diet, well controlled . On amlodipine , and lisinopril . Will continue to monitor blood pressure. Uncontroll ed type 2 diabetes mellitus 189642958 E11.65 Diabetic diet, exercise and keep the weight down. On metformin, aspirin. glimepirid e Acid reflux 033275902 K2 1.9 On pantoprazo le. Dyslipidem ia due to type 2 diabetes mellitus 5470725514 02 E78.5 Low saturated diet. on pravastati n. Low animal fat diet. [id number] MD Melonie Rangel (Adult Med) [address] [place] [address] [phone] 07/11/2021 10:33:05 07/12/2021 19:16:48 Hypertensive disorder 08813680 I10 Cont current rx Type 2 nigel betes mellitus 54124399 E11.40 Cont current rx Diabetic p eripheral neuropathy 218135544 E11.40 Cont current rx [id number] MD Melonie Rangel (Adult Med) [address] [place] [address] [phone] 10/22/2021 11:05:54 10/23/2021 14:36:16 Type 2 diabetes mellitus 73398635 E11.40 Cont current rx Diabetic p eripheral neuropathy 313718814 E11.40 Cont current rx Hypertensive disorder 38 125800 I10 Cont current rx [id number] DORCAS Ngo (Adult Med) [address] [place] [address] [phone] 03/20/2022 09:33:52 03/20/2022 10:23:36 [id number] MD Melonie Rangel (Adult Med) [address] [place] [address] [phone] 05/05/2022 11:42:59 05/06/2022 08:41:38 Type 2 diabetes mellitus 94777150 E11.40 Cont current rx Paresthesia 32855293 R20 .2 Gastroesop hageal reflux disease 778470986 K21.9 Hyperlipidemia 32061044 E78.5 [id number] MD Melonie Rangel (Adult Med) [address] [place] [address] [phone] 06/10/2022 15:24:39 06/11/2022 11:19:16 Nausea 500281550 R11.0 [id number] MD Melonie Rangel (Adult Med) [address] [place] [address] [phone] 10/01/2022 10:22:45 10/07/2022 14:34:51 Type 2 diabetes mellitus 44415832 E11.40 Cont current rx Diabetic p eripheral neuropathy 096403416 E11.40 Cont current rx Constipation 17142609 K5 9.00 [id number] MD Melonie Rangel (Adult Med) [address] [place] [address] [phone] 0 04/14/2023 15:13:30 04/15/2023 15:34:52 Type 2 diabetes mellitus 11716186 E11.40 Cont current rx Diabetic p eripheral neuropathy 434637254 E11.40 Cont current rx Constipation 91991007 K5 9.00 [id number] MD Melonie Rangel (Adult Med) [address] [place] [address] [phone] 0 03/24/2024 11:28:38 03/25/2024 07:50:19 Type 2 diabetes mellitus 17962991 E11.40 Cont current rx Hyperlipidemia 23454692 E78.5 Paresthesia 21812895 R20 .2 Constipation 21865839 K5 9.00 Gastroesop hageal reflux disease 683339187 K21.9 [id number] Isabella aDwson MD [facility] (Adult Med) [address] [place] [phone] 0 05/17/2024 12:34:25 05/19/2024 12:03:50 Paresthesia 26717978 R20.2 Type 2 nigel betes mellitus 60720287 E11.40 Cont current rx Anemia 275608745 D64.9 Hypertensive disorder 38 779247 I10 Restart losartan [id number] MD Melonie Chicas (Adult Med) [address] [place] [address] [phone] 06/06/2024 15:23:12 06/07/2024 11:22:05 Screening for malignant neoplasm of breast 489119092 Z12.39 Screening for malignant neoplasm of cervix 576535135 Z12.4 Last PAP in 2017 was positive for HPV and negative for abnormal cells. This is her first PAP since then. If her results are abnormal she will need follow up. Venereal d isease screening 487890175 Z11.3 Pruritus of vagina 43995 003 L29.3 Complains of vaginal itching. Had white vaginal discharge. Will check for fungus. If negative for yeast did discuss the possibilit y of vaginal dryness causing some itching and irritation . Patient felt this was possible. If the fungal culture is negative will try treating with lubricatio n or hormone cream and see if it helps. Postmenopausal state 764 31674 Z78.0 At this time the only symptom she may be having that is a concern is dryness, and we are addressing that. She will follow up for a women's health visit in one year, at which time I will get a DEXA scan to screen for osteoporos is. [id number] MD Melonie Rangel (Adult Med) [address] [place] [address] [phone] 07/13/2024 14:51:42 07/14/2024 12:10:23 Type 2 diabetes mellitus 68323532 E11.40 Add jardiance to regimen Hyperlipidemia 42042072 E78.5 Diabetic p eripheral neuropathy 752777543 E11.40 Increase gabapentin [id number] MD Melonie Rangel (Adult Med) [address] [place] [address] [phone] 09/06/2024 15:54:53 09/09/2024 11:32:50 Hypertensive disorder 12998225 I10 Restart losartan Type 2 nigel betes mellitus 33986682 E11.40 Add jardiance to regimen Hyperlipidemia 00438533 E78.5 Gastroesop hageal reflux disease 653763583 K21.9 Anemia 196651119 D64.9 Health Concerns Section Related Observation LastModified by Organization Detai ls LastModified Time None Recorded Concern Status LastModified by Organization Details LastModified Time None Recorded Advance Directives Directive None Recorded Payers Encounter Date Sequence Insurance Name Policy Number Policy [place] Covered Member ID [place] Member ID Guarantor Name 03/24/2024 1 [facility] (MEDICAID HMO) [id number] Salma Robinson [id number] Salma Robinson 05/17/2024 1 [facility] (MEDICAID HMO) [id number] Slama Robinson [id number] Salma Robinson 06/06/2024 1 [facility] (MEDICAID HMO) [id number] Salma Robinson [id number] Salma Robinson 07/13/2024 1 [facility] (MEDICAID HMO) [id number] Salma Robinson [id number] Salma Robinson 09/06/2024 1 [facility] (MEDICAID HMO) [id number] 0003 Salma Robinson [id number] Salma Robinson Notes Date Note Type Note Provider Name and Address Organization Details Recorded Time 03/24/2024 text/html Here for med refills. Pt accompanied by her daughter for translation. Wants to stop amitriptyline because of drowsiness. Requests trial again of gabapentin for abnormal leg sensation Isabella Dawson MD Attn: Accounting, 1 [facility], [place], [address], [facility] 03/24/2024 12:23:43 05/17/2024 text/html Here for ED f/u. Complained of leg pain, numbness and tingling. Isabella Dawson MD Attn: Accounting, 1 [facility], [place], [place], [address] [place] [address], [facility] 05/17/2024 13:47:29 06/06/2024 text/html here for women's health visit, here for PAP, has been awhile since PAP, no vaginal discharge, sometimes has itching, no female surgery, last had period eight to nine years ago, no bleeding since then, last had mammogram, not sure which date had mammogram, no menopausal hot flashes, vaginal itching, no problems holding urine, no female cancers in family, non smoker Lee Ann Bhatia MD Attn: Accounting, 1 [facility], [place], [place], [address] [place] [address], [facility] 06/06/2024 18:51:08 07/13/2024 text/html Translation hotl ine used. Her feet and body feel numb.and tingle Isabella Dawson MD Attn: Accounting, 1 [facility], [place], [address], [facility] 07/13/2024 16:03:56 09/06/2024 text/html Accompanied by h er daughterHere for f/u visit . Received nsaid a few months ago and noticed improvement in her neuropathy Isabella Dawson MD Attn: Accounting, [address] [place], [address], [facility] 09/06/2024 16:59:09 OBGyn Episode No OBEpisode recorded.
[2024-11-07 18:47] VITALS: BP 185/68; PULSE 81; RESP 18; TEMP 36.3; O2SAT 100
--- NOTE | 2024-11-07 18:52 | ECG_ITS ---
Test Date: 2024-11-07 22:35:27 Measurements Intervals Carson Rate: 74 P: 47 NH: 161 QRS: 58 QRSD: 87 T: 64 QT: 394 QTc: 439 Interpretive Statements SINUS RHYTHM Compared to ECG 06/17/2024 12:58:10 No significant changes Electronically Signed On 11-09-2024 09:33:14 POLICY ISSUE CLERK by Joe Steward M.D.
--- NOTE | 2024-11-07 18:54 | ED.WEAKNESS ---
HPI - Weakness General Chief complaint: Weakness <Kimberli Rice APRN - Last Filed: 11/07/24 18:58> Stated complaint: neck pain, weakness <Kimberli Rice APRN - Last Filed: 11/07/24 18:58> Time Seen by Provider: 11/07/24 18:50 <Kimberli Rice APRN - Last Filed: 11/07/24 18:58> Focused HPI: Patient is a non-Azeri speaking, 64-year-old female who presents to the ER with numbness, weakness, neck pain, headache that started approximately 2-3 days ago. She reports she has a history of diabetes because not check her blood sugar regularly. Patient reports she takes daily medication to treat her diabetes along with medicine for her hyperlipidemia. She denies any history of high blood pressure. Patient denies any one-sided weakness/numbness/tingling, chest pain, recent fevers, or other signs/symptoms of illness. GENERAL: Well-appearing, well-nourished, and in no acute distress. HEAD: Normocephalic, atraumatic. + tenderness with cervical palpation CHEST: Clear to auscultation. ?No respiratory distress. HEART: Regular rate and rhythm.? NEURO: ?Alert and oriented x3. Patient screened in triage and initial orders placed.? ?Additional care and disposition to be based upon?diagnostic testing and treatment. <Kimberli Rice APRN - Last Filed: 11/07/24 18:58> History of Present Illness HPI Narrative: Patient is a 64-year-old female who presents emergency department with chief complaint of neck pain overall weakness and tingling over her body and headache. The patient states that she has history of diabetes has not been compliant with checking her blood sugars on a regular basis the patient states that she has had no vomiting no diarrhea no other complaints. <José Goldstein MD - Last Filed: 11/08/24 00:46> Related Data Home medications: Home Medications ?Medication ?Instructions ?Recorded ?Confirmed ?Last Taken ?Type metformin 1,000 mg tablet mg 07/05/20 07/05/20 Unknown History gabapentin 400 mg capsule 07/06/20 Unknown History glimepiride 4 mg tablet mg 12/02/20 Unknown History hydrochlorothiazide 12.5 mg tablet 12/02/20 Unknown History lisinopril 10 mg tablet 12/02/20 Unknown History pravastatin 20 mg tablet 12/02/20 Unknown History <Kimberli Rice APRN - Last Filed: 11/07/24 18:58> Allergies/Adverse reactions: Allergies Allergy/AdvReac Type Severity Reaction Status Date / Time No Known Allergies Allergy Verified 11/07/24 22:38 <Kimberli Rice APRN - Last Filed: 11/07/24 18:58> Review of Systems Review of Systems: A 10 system review of systems was completed on the patient and is negative except for what is stated in the HPI. Nursing and ancillary documentation was reviewed. <José Goldstein MD - Last Filed: 11/08/24 00:46> PMFSH Past Medical History Medical History: Medical History History of hypertension Cervical disc disease Diabetes mellitus <Kimberli Rice APRN - Last Filed: 11/07/24 18:58> Social History Social History: Social History Social History: Danish speaking Substance use: never Living arrangements: with family Gender identity (if verbalized by the patient): Female <Kimberli Rice APRN - Last Filed: 11/07/24 18:58> Exam Narrative: GENERAL: Well-appearing, well-nourished, and in no acute distress. HEAD: Normocephalic, atraumatic. EYES: PERRLA and EOMI. ENT: Nares clear, no rhinorrhea or epistaxis. Mucous membranes moist. NECK: Supple. CHEST: Clear to auscultation. No respiratory distress. HEART: Regular rate and rhythm. No murmur heard. Normal peripheral pulses. ABDOMEN: Soft, nontender, nondistended, normal active bowel sounds. EXTREMITIES: Normal range of motion. No edema. SKIN: Warm, dry, no rash. NEURO: No focal deficits. Alert and oriented x3. PSYCH: Normal mood and affect. <José Goldstein MD - Last Filed: 11/08/24 00:46> Course Vital Signs Vital signs: Vital Signs Temperature 36.3 C L 11/07/24 18:47 Pulse Rate 81 11/07/24 18:47 Respiratory Rate 18 11/07/24 18:47 Blood Pressure 185/68 H 11/07/24 18:47 Pulse Oximetry 100 11/07/24 18:47 Oxygen Delivery Room Air 11/07/24 18:47 Temperature 36.4 C 11/07/24 22:41 Pulse Rate 72 11/07/24 22:41 Respiratory Rate 20 11/07/24 22:41 Blood Pressure 179/82 H 11/07/24 22:41 Pulse Oximetry 99 11/07/24 22:41 Oxygen Delivery Room Air 11/07/24 22:38 <Kimberli Rice APRN - Last Filed: 11/07/24 18:58> Vital Signs Temperature 36.3 C L 11/07/24 18:47 Pulse Rate 81 11/07/24 18:47 Respiratory Rate 18 11/07/24 18:47 Blood Pressure 185/68 H 11/07/24 18:47 Pulse Oximetry 100 11/07/24 18:47 Oxygen Delivery Room Air 11/07/24 18:47 Temperature 36.4 C 11/07/24 22:41 Pulse Rate 72 11/07/24 22:41 Respiratory Rate 20 11/07/24 22:41 Blood Pressure 179/82 H 11/07/24 22:41 Pulse Oximetry 99 11/07/24 22:41 Oxygen Delivery Room Air 11/07/24 22:38 <José Goldstein MD - Last Filed: 11/08/24 00:46> MDM - Weakness MDM Narrative Medical decision making narrative: Differential diagnosis includes UTI, electrolyte abnormality, cervical strain, intracranial pathology COVID flu and RSV were negative urinalysis showed 21-50 white blood cells electrolytes are within normal limits glucose 147 CBC showed white count 11.5 CT cervical spine showed evidence of spasms of the muscles CT head showed no acute abnormality <José Goldstein MD - Last Filed: 11/08/24 00:46> Lab Data Result diagrams: 11/07/24 22:36 11/07/24 22:36 <Kimberli Rice APRN - Last Filed: 11/07/24 18:58> Labs: Lab Results 11/07/24 11/07/24 11/07/24 Range/Units 22:36 22:51 22:59 WBC 11.5 H (4.5-10.0) K/mm3 RBC 4.03 L (4.2-5.4) M/mm3 Hgb 11.0 L (12.0-15.0) g/dL Hct 33.5 L (37.0-47.0) % MCV 83.1 (80-100) fl MCH 27.3 (26-34) pg MCHC 32.8 (32-36) g/dl RDW 13.0 (11.5-14.5) % Plt Count 284 (150-375) k/mm3 MPV 9.6 (7.4-10.4) fl Immature Gran % (Auto) 0.3 (0-0.5) % Neut % (Auto) 56.6 (45.5-73.1) % Lymph % (Auto) 29.2 (18.3-44.2) % Calhoun % (Auto) 4.4 (2.6-8.5) % Eos % (Auto) 8.9 H (0-4.4) % Baso % (Auto) 0.6 (0.2-1.2) % Lymph # (Auto) 3.36 H (0.9-3.2) K/mm3 Calhoun # (Auto) 0.5 (0.1-0.6) K/mm3 Eos # (Auto) 1.0 H (0-0.3) K/mm3 Baso # (Auto) 0.1 (0.0-0.1) K/mm3 Abs Immat Gran (auto) 0.03 (0.00-0.031) K/mm3 Absolute Neuts (auto) 6.5 (1.3-6.7) K/mm3 Absolute Nucleated RBC 0.000 (0.0-0.012) K/mm3 Nucleated RBC % 0.0 (0.0-0.2) % PT 12.9 (11.1-14.7) Seconds INR 0.9 APTT 30.6 (22.3-36.8) Seconds Sodium 137 (137-145) mmol/L Potassium 3.9 (3.4-5.0) mmol/L Chloride 101 (98-107) mmol/L Carbon Dioxide 26 (22-30) mmol/L Anion Gap 10 (4-12) mmol/L BUN 21 H (7-17) mg/dL Creatinine 0.78 (0.7-1.0) mg/dL Estim Creat Clear Calc 54 ml/min Estimated GFR > 60 (59 - ) Glucose 147 H (65-110) mg/dL POC Capillary Glucose 156 H (65-105) mg/dl Lactic Acid 1.0 (0.7-2.0) mmol/L Calcium 9.2 (8.4-10.2) mg/dL Magnesium 1.6 (1.6-2.3) mg/dL Total Bilirubin 0.4 (0.2-1.3) mg/dL AST 28 (14-36) U/L ALT 19 (6-35) U/L Alkaline Phosphatase 92 (38-126) U/L Total Creatine Kinase 101 (30-135) U/L Troponin I < 0.012 (0.000-0.034) ng/mL Total Protein 8.0 (6.3-8.2) g/dL Albumin 4.3 (3.5-5.1) g/dL Urine Color Yellow (Yellow) Urine Appearance Clear (Clear) Urine pH 5.5 (5.0-9.0) Ur Specific [place] 1.006 (1.001-1.035) Urine Protein Negative (Negative) mg/dL Urine Glucose (UA) Negative (Negative) mg/dL Urine Ketones Negative (Negative) mg/dL Ur Blood (Man) Negative (Negative) Urine Nitrate Negative (Negative) Urine Bilirubin Negative (Negative) Urine Urobilinogen 0.2 (<2.0) mg/dL Leukocyte Esterase Rfl 2+ H (Negative) MARKOS/UL Urine RBC 0-2 (0-2) /hpf Urine WBC 21-50 H (0-3) /hpf Ur Squamous Epith Cells Few (Few) /hpf Urine Bacteria Rare /hpf Urine Casts 0-2 Influenza A (RT-PCR) Negative (Negative) Influenza B (RT-PCR) Negative (Negative) RSV (RT-PCR) Negative (Negative) SARS-CoV-2 RNA (RT-PCR) Negative (Negative) <Kimberli Rice, SECURITY DIRECTOR - Last Filed: 11/07/24 18:58> Lab Results 11/07/24 11/07/24 11/07/24 Range/Units 22:36 22:51 22:59 WBC 11.5 H (4.5-10.0) K/mm3 RBC 4.03 L (4.2-5.4) M/mm3 Hgb 11.0 L (12.0-15.0) g/dL Hct 33.5 L (37.0-47.0) % MCV 83.1 (80-100) fl MCH 27.3 (26-34) pg MCHC 32.8 (32-36) g/dl RDW 13.0 (11.5-14.5) % Plt Count 284 (150-375) k/mm3 MPV 9.6 (7.4-10.4) fl Immature Gran % (Auto) 0.3 (0-0.5) % Neut % (Auto) 56.6 (45.5-73.1) % Lymph % (Auto) 29.2 (18.3-44.2) % Calhoun % (Auto) 4.4 (2.6-8.5) % Eos % (Auto) 8.9 H (0-4.4) % Baso % (Auto) 0.6 (0.2-1.2) % Lymph # (Auto) 3.36 H (0.9-3.2) K/mm3 Calhoun # (Auto) 0.5 (0.1-0.6) K/mm3 Eos # (Auto) 1.0 H (0-0.3) K/mm3 Baso # (Auto) 0.1 (0.0-0.1) K/mm3 Abs Immat Gran (auto) 0.03 (0.00-0.031) K/mm3 Absolute Neuts (auto) 6.5 (1.3-6.7) K/mm3 Absolute Nucleated RBC 0.000 (0.0-0.012) K/mm3 Nucleated RBC % 0.0 (0.0-0.2) % PT 12.9 (11.1-14.7) Seconds INR 0.9 APTT 30.6 (22.3-36.8) Seconds Sodium 137 (137-145) mmol/L Potassium 3.9 (3.4-5.0) mmol/L Chloride 101 (98-107) mmol/L Carbon Dioxide 26 (22-30) mmol/L Anion Gap 10 (4-12) mmol/L BUN 21 H (7-17) mg/dL Creatinine 0.78 (0.7-1.0) mg/dL Estim Creat Clear Calc 54 ml/min Estimated GFR > 60 (59 - ) Glucose 147 H (65-110) mg/dL POC Capillary Glucose 156 H (65-105) mg/dl Lactic Acid 1.0 (0.7-2.0) mmol/L Calcium 9.2 (8.4-10.2) mg/dL Magnesium 1.6 (1.6-2.3) mg/dL Total Bilirubin 0.4 (0.2-1.3) mg/dL AST 28 (14-36) U/L ALT 19 (6-35) U/L Alkaline Phosphatase 92 (38-126) U/L Total Creatine Kinase 101 (30-135) U/L Troponin I < 0.012 (0.000-0.034) ng/mL Total Protein 8.0 (6.3-8.2) g/dL Albumin 4.3 (3.5-5.1) g/dL Urine Color Yellow (Yellow) Urine Appearance Clear (Clear) Urine pH 5.5 (5.0-9.0) Ur Specific [place] 1.006 (1.001-1.035) Urine Protein Negative (Negative) mg/dL Urine Glucose (UA) Negative (Negative) mg/dL Urine Ketones Negative (Negative) mg/dL Ur Blood (Man) Negative (Negative) Urine Nitrate Negative (Negative) Urine Bilirubin Negative (Negative) Urine Urobilinogen 0.2 (<2.0) mg/dL Leukocyte Esterase Rfl 2+ H (Negative) MARKOS/UL Urine RBC 0-2 (0-2) /hpf Urine WBC 21-50 H (0-3) /hpf Ur Squamous Epith Cells Few (Few) /hpf Urine Bacteria Rare /hpf Urine Casts 0-2 Influenza A (RT-PCR) Negative (Negative) Influenza B (RT-PCR) Negative (Negative) RSV (RT-PCR) Negative (Negative) SARS-CoV-2 RNA (RT-PCR) Negative (Negative) <José Goldstein MD - Last Filed: 11/08/24 00:46> Discharge Plan Discharge Clinical Impression: Cervical strain, Acute UTI <Kimberli Rice APRN - Last Filed: 11/07/24 18:58> Patient Disposition: Home, Self-Care <Kimberli Rice SECURITY DIRECTOR - Last Filed: 11/07/24 18:58> Condition: Stable <Kimberli Rice SECURITY DIRECTOR - Last Filed: 11/07/24 18:58> Instructions: Antibiotic Form, Cervical Strain (ED), Urinary Tract Infection in Women (ED) <Kimberli Rice APRN - Last Filed: 11/07/24 18:58> Patient Language: Danish <Kimberli Rice SECURITY DIRECTOR - Last Filed: 11/07/24 18:58> Prescriptions: New cephalexin 500 mg capsule 500 mg PO Q12H 7 Days Qty: 14 0RF cyclobenzaprine 10 mg tablet 10 mg PO TID PRN (Reason: muscle spasm) Qty: 21 0RF No Action metformin 1,000 mg tablet gabapentin 400 mg capsule lisinopril 10 mg tablet glimepiride 4 mg tablet pravastatin 20 mg tablet hydrochlorothiazide 12.5 mg tablet pantoprazole [Protonix] 20 mg tablet,delayed release (DR/EC) 20 mg PO HS 28 Days Qty: 28 0RF famotidine [Pepcid] 20 mg tablet 20 mg PO BID 42 Days Qty: 84 0RF ondansetron 4 mg tablet,disintegrating 4 mg PO Q8H PRN (Reason: nausea and vomiting) Qty: 30 0RF magnesium oxide 400 mg magnesium capsule 400 mg PO DAILY Qty: 30 0RF cephalexin 500 mg capsule 500 mg PO Q12H Qty: 14 0RF amlodipine 5 mg tablet 5 mg PO DAILY Qty: 30 0RF cefdinir 300 mg capsule 300 mg PO Q12H 7 Days Qty: 14 0RF oseltamivir [Tamiflu] 75 mg capsule 75 mg PO Q12H 5 Days Qty: 10 0RF meclizine 25 mg tablet 25 mg PO TID PRN (Reason: dizziness) Qty: 14 0RF dicyclomine 20 mg tablet 20 mg PO TID Qty: 30 0RF ibuprofen 600 mg tablet 600 mg PO TID PRN (Reason: pain) Qty: 20 0RF acetaminophen 500 mg capsule 1,000 mg PO Q6H PRN (Reason: pain) Qty: 20 0RF <Kimberli Rice APRN - Last Filed: 11/07/24 18:58> Follow-up/Referrals: Claudette,Isabella Ortiz MD [Primary Care Provider] - <Kimberli Rice APRN - Last Filed: 11/07/24 18:58>
[2024-11-07 22:37] VITALS: PULSE 73
[2024-11-07 22:38] VITALS: O2SAT 100
[2024-11-07 22:41] VITALS: BP 179/82; PULSE 72; RESP 20; TEMP 36.4; O2SAT 99
[2024-11-07 22:46] LABS: Basophils Absolute Auto 0.1 K/mm3 (0.0-0.1); Basophils Percent Auto 0.6 % (0.2-1.2); Eosinophils Percent Auto 8.9 % (0-4.4); Hematocrit 33.5 % (37.0-47.0); Immature Granulocyte Absolute 0.03 K/mm3 (0.00-0.031); Immature Granulocyte Percent A 0.3 % (0-0.5); Lymphocytes Absolute Auto 3.36 K/mm3 (0.9-3.2); Lymphocytes Percent Auto 29.2 % (18.3-44.2); Mean Corpuscular HGB Conc 32.8 g/dl (32-36); Mean Corpuscular Hemoglobin 27.3 pg (26-34); Mean Corpuscular Volume 83.1 fl (80-100); Mean Platelet Volume 9.6 fl (7.4-10.4); Monocytes Absolute Auto 0.5 K/mm3 (0.1-0.6); Monocytes Percent Auto 4.4 % (2.6-8.5); Neutrophils Absolute Auto 6.5 K/mm3 (1.3-6.7); Neutrophils Percent Auto 56.6 % (45.5-73.1); Platelet Count Result 284 k/mm3 (150-375); Red Blood Count 4.03 M/mm3 (4.2-5.4); White Blood Count 11.5 K/mm3 (4.5-10.0)
[2024-11-07 22:55] LABS: Glucose Point of Care 156 mg/dl (65-105)
[2024-11-07 22:57] LABS: Alanine Aminotransferase 19 U/L (6-35); Albumin Level 4.3 g/dL (3.5-5.1); Alkaline Phosphatase 92 U/L (38-126); Anion Gap 10 mmol/L (4-12); Aspartate Amino Transferase 28 U/L (14-36); Bilirubin,Total 0.4 mg/dL (0.2-1.3); Blood Urea Nitrogen 21 mg/dL (7-17); Calcium 9.2 mg/dL (8.4-10.2); Carbon Dioxide 26 mmol/L (22-30); Chloride 101 mmol/L (98-107); Estimated CRCL calculation 54 ml/min; Estimated Glomerular Filt Rate > 60; Glucose 147 mg/dL (65-110); Potassium 3.9 mmol/L (3.4-5.0); Sodium 137 mmol/L (137-145)
[2024-11-07 23:02] LABS: INR 0.9; Prothrombin Time 12.9 Seconds (11.1-14.7)
[2024-11-07 23:03] LABS: Partial Thromboplastin Time 30.6 Seconds (22.3-36.8)
[2024-11-07 23:07] LABS: Troponin I < 0.012 ng/mL (0.000-0.034)
[2024-11-07 23:11] LABS: Add Urine Microscopic? YES; Appearance Urine Clear (Clear); Bacteria Urine Rare /hpf; Bilirubin Urine Negative (Negative); Blood Urine Negative (Negative); Color Urine Yellow (Yellow); Glucose Urine UA Negative (Negative); Ketones Urine Negative (Negative); Leukocyte Esterase Ur 2+ LEU/UL (Negative); Nitrate Urine Negative (Negative); Non Pathogenic Casts 0-2; Protein Urine Negative (Negative); RBC Urine 0-2 /hpf (0-2); Specific Grav Ur 1.006 (1.001-1.035); Squamous Epithelial Cell Urine Few /hpf (Few); Urobilinogen Urine 0.2 mg/dL (<2.0); WBC Urine 21-50 /hpf (0-3); pH Urine 5.5 (5.0-9.0)
[2024-11-07 23:25] LABS: Creatine Kinase 101 U/L (30-135); Magnesium 1.6 mg/dL (1.6-2.3)
--- OUTSIDE RECORDS SUMMARY | 2024-11-07 23:25 | XMS_ITS | Referral Summary ---
Author Organization [facility] Address [address] [place] [address] Care Team Providers Care Shoes Hand Sewer Name Role Phone Unavailable Primary Care Provider Unavailabl e Source Comments [facility],non-owned Affiliates and Associated Physician Practices is amultiple site organization consisting of ambulatory clinics and hospital sitesin [place], [place], [place] and [place]. This disclosure is being madepursuant to the Care Everywhere program and may not contain all information available regarding this patient. Last updated 18.[facility] [employer] Allergies No known active allergies Medications * [...]
--- OUTSIDE RECORDS SUMMARY | 2024-11-07 23:25 | XMS_ITS | Patient Health Summary ---
Author Organization [facility] Address [address] [place] [address] Care Team Providers Care Die Grinder Name Role Phone Unavailable Primary Care Provider Unavailabl e Note from [facility],non-owned Affiliates and Associated Physician Practices is amultiple site organization consisting of ambulatory clinics and hospital sitesin [place], [place], [place] and [place]. This disclosure is being madepursuant to the Care Everywhere program and may not contain all information available regarding this patient. Last updated 18.[facility] [email or web address] Allergies No known active allergies Medications * [...] Body Mass Index - - Procedures * MA EAR MICROSCOPY EXAMINATION(Performed 04/15/2021) Performed for Tinnitus of left ear Results * MA EAR MICROSCOPY EXAMINATION (04/15/2021 4:12 PM CDT) Narrative Claude Vale MD - 04/15/2021 4:12 PM CDT Claude Vale MD 04/15/2021 4:13 PM Both ear examined under microscope left monomer both middle ears healthy. Claude Vale MD PROCEDURE/MINOR SURG ICAL ORDERABLES
--- OUTSIDE RECORDS SUMMARY | 2024-11-07 23:25 | XMS_ITS | Clinical Summary ---
Author Organization [facility] Address [address] [place] [address] Care Team Providers Care Rehabilitation Worker Name Role Phone Unavailable Primary Care Provider Unavailabl e Source Comments [facility],non-owned Affiliates and Associated Physician Practices is amultiple site organization consisting of ambulatory clinics and hospital sitesin [place], [place], [place] and [place]. This disclosure is being madepursuant to the Care Everywhere program and may not contain all information available regarding this patient. Last updated 18.[facility] [employer] Allergies No known active allergies Medications * [...]
[2024-11-07 23:58] LABS: Influenza A QL RT-PCR Negative (Negative); Influenza B QL RT-PCR Negative (Negative); RSV RNA, RT-PCR Negative (Negative); SARS-CoV-2 RNA PCR Negative (Negative)
[2024-11-08] MEDS: CEPHALEXIN 500 MG CAPSULE PO (00:49)
== END 2024-11-08 00:54 | disposition home or self-care (01) ==
PROVIDERS: Registered Nurse; Emergency Provider Emergency Medicine; PCP Internal Medicine Gastroenterology
DX: N39.0 Urinary tract infection, site not specified (principal); S16.1XXA Strain of muscle, fascia and tendon at neck level, initial encounter; Z20.822 Contact with and (suspected) exposure to COVID-19; I10 Essential (primary) hypertension; E11.9 Type 2 diabetes mellitus without complications; E78.5 Hyperlipidemia, unspecified; Z79.84 Long term (current) use of oral hypoglycemic drugs; Z79.899 Other long term (current) drug therapy; X58.XXXA Exposure to other specified factors, initial encounter
CPT/HCPCS: 36415; 70450; 72125; 80053; 81001; 82550; 82948; 83605; 83735; 84484; 85025; 85610; 85730; 87086; 87637; 93005; 99284; A9270